=== PATIENT | female | born 1980 | race Caucasian/White ===

== ENCOUNTER 2017-02-10 21:24 | Emergency (ER) | payer OTHER ==
[2017-02-10 21:36] VITALS: BP 121/86; PULSE 87; TEMP 98; BMI 36.8
[2017-02-10] MEDS ORDERED: SODIUM CHLORIDE 1,000 ML IV STA (22:53)
[2017-02-10] MEDS ORDERED: OXYCODONE/APAP 5/325MG COMBO TABLET PO ONE (22:55)
[2017-02-10] MEDS ORDERED: OXYCODONE/APAP 5/325MG COMBO TABLET ONE (23:05)
[2017-02-10 23:33] LABS: BASOPHIL 1.1 % (0-2.0); EOSINOPHIL 2.2 % (0-4.5); MCH 26.4 pg (25.7-33.7); MCHC 32.1 g/dl (32.0-36.0); MEAN CELL VOLUME 82.4 fl (80-96); MEAN PLT VOLUME 7.4 fl (7.5-11.1); NEUTROPHILS 54.6 % (42.8-82.8); PLATELET COUNT 302 K/MM3 (134-434); RDW 14.8 % (11.6-15.6); WHITE BLOOD COUNT 6.2 K/mm3 (4.0-10.0)
[2017-02-10 23:58] LABS: ANION GAP 11 (8-16); BILIRUBIN,TOTAL 0.4 mg/dL (0.2-1.0); CALCIUM 8.7 mg/dL (8.5-10.1); CO2 24 mmol/L (21-32); COCKROFT - GAULT 146.7865; CREATININE 0.8 mg/dL (0.55-1.02); GLUCOSE,RANDOM 89 mg/dL (74-106); SGOT/AST 16 U/L (15-37); SGPT/ALT 17 U/L (12-78); TOT PROT 7.9 g/dl (6.4-8.2)
[2017-02-11 00:01] LABS: ALK PHOS 59 U/L (45-117); TROPONIN I < 0.02 ng/ml (0.00-0.05)
[2017-02-11 02:31] LABS: URINE APPEARANCE SLCLOUDY; URINE BILIRUBIN NEGATIVE (NEGATIVE); URINE COLOR DKYELLOW; URINE GLUCOSE (UA) NEGATIVE (NEGATIVE); URINE KETONE 1+ (NEGATIVE); URINE NITRITE NEGATIVE (NEGATIVE); URINE UROBILINOGEN NEGATIVE E.U./dl (0.2-1.0)
[2017-02-11 02:33] LABS: URINE BLOOD 1+ (NEGATIVE); URINE LEUK ESTERASE 1+ (NEGATIVE); URINE PROTEIN 1+ (NEGATIVE)
--- NOTE | 2017-02-11 02:56 | PDOC ---
History of Present Illness - General Chief Complaint: Chest Pain Stated Complaint: CHEST PAIN Time Seen by Provider: 02/10/17 21:56 History Source: Patient Exam Limitations: No Limitations - History of Present Illness Initial Comments: 02/11/17 02:49 36yo Female patient w/ PmHx: recurrent boils presents to ED c/o chest pain that started at 6pm, nausea, weakness, dizziness, and chills. Patient reports she does not believe it "true" chest pains, but states she had an abscess underneath her left breast that burst on its own. She states having a similar issue 2-3 years ago but near her groin which tracked to her rectum, and she had to undergo surgery to correct problem. Patient is concerns she may have blood infection. She denies fever, diff breathing, CP, Abd pain, vomiting or diarrhea. She denies any other complaints at this time. Presenting Symptoms: Chest Pain, Nausea Timing/Duration: reports: intermittent Severity/Quality: reports: mild Location: denies: substernal, central, epigastric, shoulder, back, abdomen, other Chest Pain Radiation: denies: no radiation, jaw, arms, neck, shoulders, back, sternal notch, epigastric, other Activities at Onset: denies: none, exertion, emotional upset, rest, sleep, no specific activity, eating, working, sexual intercourse, other Prior Chest Pain/Cardiac Workup: denies: No prior chest pain, No prior cardiac workup, Non-cardiac, Angina, Cardiac Cath, Cardiolye Scan, Echocardiography, Heart Attack, Pulmonary Embolism, Stress Test, Thallium Scan, Other Past History - Travel Traveled outside of the country in the last 30 days: No Close contact w/someone who was outside of country & ill: No - Past Medical History Allergies/Adverse Reactions: Allergies Allergy/AdvReac Type Severity Reaction Status Date / Time amoxicillin [Amoxicillin] Allergy Severe Vomiting Verified 05/05/16 22:48 shellfish derived Allergy Severe Difficulty Verified 05/05/16 22:48 Breathing Penicillins Allergy Unknown Verified 05/05/16 22:48 Home Medications: Ambulatory Orders Albuterol Sulfate 0.5% [Ventolin 0.5% Nebulizing Soln. -] 1 neb IH QID PRN 08/16 Clindamycin [Cleocin -] 300 mg PO BID #20 capsule 02/11/17 Oxycodone HCl/Acetaminophen [Percocet 10-325 mg Tablet] 1 each PO Q4H PRN #24 tablet MDD 6 tabs 02/11/17 Asthma: Yes (NO ADMISSIONS) Suicide Attempt (Hx): No - Surgical History Cholecystectomy: Yes - Psycho/Social/Smoking Cessation Hx Anxiety: No Suicidal Ideation: No Smoking Status: Yes Smoking History: Never smoked Have you smoked in the past 12 months: No Number of Cigarettes Smoked Daily: 0 If you are a former smoker, when did you quit?: 2011 Information on smoking cessation initiated: No Hx Alcohol Use: No Drug/Substance Use Hx: No Substance Use Type: None Review of Systems - Review of Systems Able to Perform ROS?: Yes Is the patient limited Estonian proficient: No Constitutional: Yes: Chills. No: Fever Respiratory: No: Cough, Shortness of Breath, Stridor, Wheezing Cardiac (ROS): Yes: Chest Pain. No: Palpitations, Syncope, Chest Tightness ABD/GI: Yes: Nausea. No: Constipated, Diarrhea, Poor Appetite, Poor Fluid Intake, Vomiting, Abdominal cramping : No: Burning, Dysuria, Discharge, Flank Pain, Hematuria Musculoskeletal: No: Back Pain Integumentary: Yes: Other (Abscess beneath left breast.). No: Bruising, Dryness , Pruritus, Rash Neurological: No: Headache, Seizure, Tingling, Ataxia, Dizziness All Other Systems: Reviewed and Negative *Physical Exam - Vital Signs Last Vital Signs Temp Pulse Resp BP Pulse Ox 98 F 87 18 121/86 98 02/10/17 21:34 02/10/17 21:34 02/10/17 21:34 02/10/17 21:34 02/10/17 21:34 - Physical Exam General Appearance: Yes: Nourished, Appropriately Dressed. No: Apparent Distress, Mild Distress, Moderate Distress, Severe Distress Neck: positive: Trachea midline, Normal Thyroid, Supple. negative: Rigid, Stridor, Lymphadenopathy (R), Lymphadenopathy (L) Respiratory/Chest: positive: Lungs Clear, Normal Breath Sounds. negative: Chest Tender, Respiratory Distress, Accessory Muscle Use, Labored Respiration, Rapid RR, Rhonchi, Stridor, Wheezing Cardiovascular: positive: Regular Rhythm, Regular Rate. negative: Edema, JVD, Murmur Gastrointestinal/Abdominal: positive: Normal Bowel Sounds, Soft. negative: Distended, Guarding, Rebound, Tenderness Musculoskeletal: positive: Normal Inspection. negative: CVA Tenderness, Vertebral Tenderness Extremity: positive: Normal Capillary Refill, Normal Inspection, Normal Range of Motion. negative: Pedal Edema, Swelling, Calf Tenderness, Erythema, Inflammation Integumentary: positive: Normal Color, Dry, Warm. negative: Erythema, Hives, Rash, Swelling Neurologic: positive: front desk host II-XII NML intact, Fully Oriented, Alert, Normal Mood/ Affect, Normal Response, Motor Strength 01/16 ED Treatment Course - LABORATORY CBC & Chemistry Diagram: 02/10/17 23:10 02/10/17 23:10 - ADDITIONAL ORDERS Additional order review: Laboratory Results 02/11/17 02/10/17 02/10/17 02:24 23:10 23:10 Sodium 139 Potassium 3.8 Chloride 104 Carbon Dioxide 24 Anion Gap 11 BUN 9 Creatinine 0.8 Creat Clearance w eGFR > 60 Random Glucose 89 Lactic Acid 1.0 Calcium 8.7 Total Bilirubin 0.4 D AST 16 D ALT 17 Alkaline Phosphatase 59 Creatine Kinase 85 Troponin I < 0.02 Total Protein 7.9 Albumin 4.0 D Urine Color Dkyellow Urine Appearance Slcloudy Urine pH 5.0 D Urine Protein 1+ H Urine Glucose (UA) Negative Urine Ketones 1+ H Urine Blood 1+ H Urine Nitrite Negative Urine Bilirubin Negative Urine Urobilinogen Negative Ur Leukocyte Esterase 1+ H 02/10/17 23:10 RBC 5.13 MCV 82.4 MCHC 32.1 RDW 14.8 MPV 7.4 L Neutrophils % 54.6 Lymphocytes % 32.1 D Monocytes % 10.0 Eosinophils % 2.2 Basophils % 1.1 - Medications Given in the ED: ED Medications Discontinued Medications Generic Name Dose Route Start Last Admin Trade Name Freq PRN Reason Stop Dose Admin Sodium Chloride 1,000 mls @ 1,000 mls/hr 02/10/17 22:53 02/10/17 23:00 Normal Saline - IV 02/10/17 23:52 1,000 mls/hr ASDIR STA Administration Oxycodone/Acetaminophen 1 combo 02/10/17 22:55 02/10/17 23:00 Percocet 5/325 - PO 02/10/17 22:56 1 combo ONCE ONE Administration *DC/Admit/Observation/Transfer Diagnosis at time of Disposition: Abscess of skin of breast - Discharge Dispostion Disposition: HOME Condition at time of disposition: Improved Admit: No - Prescriptions Prescriptions: Clindamycin [Cleocin -] 300 mg PO BID #20 capsule Oxycodone HCl/Acetaminophen [Percocet 10-325 mg Tablet] 1 each PO Q4H PRN #24 tablet MDD 6 tabs PRN Reason: Severe Pain - Patient Instructions Printed Discharge Instructions: DI for Atypical Chest Pain Additional Instructions: FOLLOW UP WITH YOUR PRIMARY CARE PROVIDER THIS WEEK FOR FURTHER EVALUATION. TAKE MEDICATIONS PRESCRIBED. DO NOT DRIVE, DRINK ALCOHOL, OR OPERATE HEAVY MACHINERY WHILE TAKING PERCOCET. YOU MAY TAKE 1 PERCOCET AND 1 MOTRIN 400-600MG FOR EXTENDED PAIN RELIEF. CLINDAMYCIN FOR ANTIBIOTIC COVERAGE. TAKE WITH FOOD. RETURN IF SYMPTOMS WORSEN OR ANY CONCERNS FOR FURTHER EVALUATION. Print Language: PARAGUAYAN
[2017-02-11 03:01] LABS: URINE MUCUS MANY; URINE RBC 7 /hpf (0-3); URINE WBC 15 /hpf (3-5)
--- NOTE | 2017-02-11 03:06 | PDOC ---
*Physical Exam - Vital Signs Last Vital Signs Temp Pulse Resp BP Pulse Ox 98 F 87 18 121/86 98 02/10/17 21:34 02/10/17 21:34 02/10/17 21:34 02/10/17 21:34 02/10/17 21:34 ED Treatment Course - LABORATORY CBC & Chemistry Diagram: 02/10/17 23:10 02/10/17 23:10 - ADDITIONAL ORDERS Additional order review: Laboratory Results 02/11/17 02/10/17 02/10/17 02:24 23:10 23:10 Sodium 139 Potassium 3.8 Chloride 104 Carbon Dioxide 24 Anion Gap 11 BUN 9 Creatinine 0.8 Creat Clearance w eGFR > 60 Random Glucose 89 Lactic Acid 1.0 Calcium 8.7 Total Bilirubin 0.4 D AST 16 D ALT 17 Alkaline Phosphatase 59 Creatine Kinase 85 Troponin I < 0.02 Total Protein 7.9 Albumin 4.0 D Urine Color Dkyellow Urine Appearance Slcloudy Urine pH 5.0 D Urine Protein 1+ H Urine Glucose (UA) Negative Urine Ketones 1+ H Urine Blood 1+ H Urine Nitrite Negative Urine Bilirubin Negative Urine Urobilinogen Negative Ur Leukocyte Esterase 1+ H Urine RBC 7 Urine WBC 15 Ur Epithelial Cells Few Urine Mucus Many 02/10/17 23:10 RBC 5.13 MCV 82.4 MCHC 32.1 RDW 14.8 MPV 7.4 L Neutrophils % 54.6 Lymphocytes % 32.1 D Monocytes % 10.0 Eosinophils % 2.2 Basophils % 1.1 - Medications Given in the ED: ED Medications Discontinued Medications Generic Name Dose Route Start Last Admin Trade Name Freq PRN Reason Stop Dose Admin Sodium Chloride 1,000 mls @ 1,000 mls/hr 02/10/17 22:53 02/10/17 23:00 Normal Saline - IV 02/10/17 23:52 1,000 mls/hr ASDIR STA Administration Oxycodone/Acetaminophen 1 combo 02/10/17 22:55 02/10/17 23:00 Percocet 5/325 - PO 02/10/17 22:56 1 combo ONCE ONE Administration Medical Decision Making - Medical Decision Making 02/11/17 03:06 agree with care from JIMENA Boo *DC/Admit/Observation/Transfer Diagnosis at time of Disposition: Abscess of skin of breast - Prescriptions Prescriptions: Clindamycin [Cleocin -] 300 mg PO BID #20 capsule Oxycodone HCl/Acetaminophen [Percocet 10-325 mg Tablet] 1 each PO Q4H PRN #24 tablet MDD 6 tabs PRN Reason: Severe Pain - Referrals Referrals: Juan Pabon [Primary Care Provider] - - Patient Instructions - Post Discharge Activity
--- NOTE | 2017-02-12 16:35 | EKG ---
Test Reason : Blood Pressure : / mmHG Vent. Rate : 076 BPM Atrial Rate : 076 BPM P-R Int : 136 ms QRS Dur : 088 ms QT Int : 400 ms P-R-T Axes : 047 048 050 degrees QTc Int : 450 ms SINUS RHYTHM WITH OCCASIONAL PREMATURE VENTRICULAR COMPLEXES OTHERWISE NORMAL ECG NO PREVIOUS ECGS AVAILABLE Confirmed by BG MUJICA, JOAN ([id number]) on 02/12/2017 4:35:02 PM Referred By: Confirmed By:JOAN PEDERSON MD
== END 2017-02-11 03:29 | disposition home or self-care (01) ==
LOC: JER 21:24
PROC: 3E0337Z Introduction of Electrolytic and Water Balance Substance into Peripheral Vein, Percutaneous Approach (ICD-10-PCS; principal; 2017-02-10)
DX: N61.1 Abscess of the breast and nipple (principal); R42 Dizziness and giddiness
CPT/HCPCS: 36415; 80053; 81003; 81015; 82550; 83605; 84484; 85025; 93005; 93010; 99283-25

== ENCOUNTER 2017-03-16 08:44 | Emergency (ER) | payer OTHER ==
[2017-03-16 08:48] VITALS: BP 148/71; PULSE 100; TEMP 98.4; BMI 36.0
[2017-03-16] MEDS ORDERED: KETOROLAC TROMETHAMINE 60 MG/2 ML VIAL IM ONE (09:19)
--- NOTE | 2017-03-16 09:24 | PDOC ---
History of Present Illness - General Chief Complaint: Pain Stated Complaint: RT LEG PAIN Time Seen by Provider: 03/16/17 08:49 History Source: Patient Exam Limitations: No Limitations - History of Present Illness Initial Comments: 03/16/17 09:44 Patient came for evaluation of severe right hip and groin pain. States had onset on Thursday to us progressively gotten worse where it's difficult for her to walk. Denies any knowledge of injury, change in footwear, any heavy lifting or strenuous activity that would've caused a pole or injury. Has had no history of back pain orc accidents, has never had this pain before. 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 Denies fever, denies any numbness or tingling to foot, denies any back injury. Has taken no medication for relief of pain. 03/16/17 09:57 Occurred: reports: yesterday Severity: reports: mild, moderate Pain Location: reports: lower extremity (right hip/ groin), pelvis Method of Injury: Yes: unknown Loss of Consciousness: no loss of consciousness Associated Symptoms (Fall): denies symptoms Past History - Travel Traveled outside of the country in the last 30 days: No Close contact w/someone who was outside of country & ill: No - Past Medical History Allergies/Adverse Reactions: Allergies Allergy/AdvReac Type Severity Reaction Status Date / Time amoxicillin [Amoxicillin] Allergy Severe Vomiting Verified 03/16/17 08:45 shellfish derived Allergy Severe Difficulty Verified 03/16/17 08:45 Breathing Penicillins Allergy Unknown Verified 03/16/17 08:45 Home Medications: Ambulatory Orders Albuterol Sulfate 0.5% [Ventolin 0.5% Nebulizing Soln. -] 1 neb IH QID PRN 08/16 Cyclobenzaprine HCl [Flexeril 10 mg] 10 mg PO BID PRN #14 tablet 03/16/17 Naproxen [Naprosyn -] 500 mg PO BID #30 tablet 03/16/17 Asthma: Yes (NO ADMISSIONS) Suicide Attempt (Hx): No - Surgical History Cholecystectomy: Yes - Psycho/Social/Smoking Cessation Hx Anxiety: No Suicidal Ideation: No Smoking Status: Yes Smoking History: Never smoked Have you smoked in the past 12 months: No Number of Cigarettes Smoked Daily: 0 If you are a former smoker, when did you quit?: 2011 Information on smoking cessation initiated: No Hx Alcohol Use: No Drug/Substance Use Hx: No Substance Use Type: None Trauma Specific PMHX - Complaint Specific PMHX Back Injury: No Neck Injury: No Review of Systems - Review of Systems Able to Perform ROS?: Yes Is the patient limited Armenian proficient: Yes Constitutional: Yes: Symptoms Reported, See HPI. No: Fever, Malaise HEENTM: Yes: Symptoms Reported Respiratory: Yes: Symptoms reported, See HPI Musculoskeletal: Yes: Symptoms Reported, See HPI, Joint Pain, Muscle Pain, Muscle Weakness (anterior thigh/groin) Neurological: Yes: See HPI. No: Symptoms reported All Other Systems: Reviewed and Negative *Physical Exam - Vital Signs Last Vital Signs Temp Pulse Resp BP Pulse Ox 98.4 F 100 H 18 148/71 100 03/16/17 08:45 03/16/17 08:45 03/16/17 08:45 03/16/17 08:45 03/16/17 08:45 - Physical Exam General Appearance: Yes: Nourished, Appropriately Dressed, Apparent Distress, Mild Distress HEENT: positive: EVA, Normal ENT Inspection, TMs Normal, Pharynx Normal Neck: negative: Tender Respiratory/Chest: positive: Lungs Clear Gastrointestinal/Abdominal: positive: Soft Musculoskeletal: positive: Normal Inspection, Decreased Range of Motion ( forward flexion and abduction to right hip is tender, reproduces primarily to the anterior aspect and right groin. Has no true buttock or back pain, no crepitus or step-off to spine. Walking is difficult secondary to this pain reproduced in the groin and upper quadricep muscles. No swelling, no ecchymoses or erythema noted. The knee and foot, neurovascular intact distal to groin.) Extremity: positive: Normal Capillary Refill, Normal Inspection, Pelvis Stable. negative: Normal Range of Motion, Swelling Integumentary: positive: Normal Color, Dry, Warm, Pale. negative: Rash Neurologic: positive: reconnaissance man II-XII NML intact, Fully Oriented, Alert, Normal Mood/ Affect, Normal Response, Motor Strength 5/5 Progress Note - Progress Note Progress Note: X-ray negative for fractures dislocations, bony injury Groin strain, will treat with NSAIDs cyclobenzaprine, and have follow up with Ortho in one to 2 days if not improving. *DC/Admit/Observation/Transfer Diagnosis at time of Disposition: Inguinal strain Qualifiers: Encounter type: initial encounter Laterality: right Qualified Code(s): S76.211A - Strain of adductor muscle, fascia and tendon of right thigh, initial encounter - Discharge Dispostion Disposition: HOME Condition at time of disposition: Stable Admit: No - Prescriptions Prescriptions: Cyclobenzaprine HCl [Flexeril 10 mg] 10 mg PO BID PRN #14 tablet PRN Reason: spasm Naproxen [Naprosyn -] 500 mg PO BID #30 tablet - Referrals Referrals: Juan Pabon [Primary Care Provider] - - Patient Instructions Printed Discharge Instructions: DI for Groin Strain Additional Instructions: Rest, no heavy lifting or exercise until pain is resolved Hot soaks to neck and low back / area of pain as often as possible/hot showers or Jacuzzis No massage or therapy until spasm is gone Continue Naprosyn 500mg tablets every 8 hours for the next 3 days then as needed for pain and swelling Cyclobenzaprine 1-10mg every 8 hours as needed for spasm If not significant improvement within 24 hours with medication and rest regime, followup with private physician for change in medications and /or therapy. - Post Discharge Activity Work/School Note: Back to Work
[2017-03-16 09:38] LABS: URINE APPEARANCE CLEAR; URINE BILIRUBIN NEGATIVE (NEGATIVE); URINE COLOR LTYELLOW; URINE GLUCOSE (UA) NEGATIVE (NEGATIVE); URINE KETONE NEGATIVE (NEGATIVE); URINE LEUK ESTERASE NEGATIVE (NEGATIVE); URINE NITRITE NEGATIVE (NEGATIVE); URINE PROTEIN NEGATIVE (NEGATIVE); URINE UROBILINOGEN NEGATIVE E.U./dl (0.2-1.0)
[2017-03-16 09:41] LABS: URINE BLOOD 3+ (NEGATIVE)
[2017-03-16] MEDS ORDERED: KETOROLAC TROMETHAMINE 60 MG/2 ML VIAL ONE (09:42)
[2017-03-16 09:43] LABS: URINE MUCUS RARE; URINE RBC 158 /hpf (0-3); URINE WBC 4 /hpf (3-5)
== END 2017-03-16 11:04 | disposition home or self-care (01) ==
LOC: JERFT 08:44
PROC: 3E0233Z Introduction of Anti-inflammatory into Muscle, Percutaneous Approach (ICD-10-PCS; principal; 2017-03-16)
DX: S76.211A Strain of adductor muscle, fascia and tendon of right thigh, initial encounter (principal); X58.XXXA Exposure to other specified factors, initial encounter; Y93.89 Activity, other specified; Y92.89 Other specified places as the place of occurrence of the external cause
CPT/HCPCS: 73523-TC; 81003; 81015; 84703; 96372; 99281-25

== ENCOUNTER 2017-04-13 17:29 | Emergency (ER) | payer OTHER ==
[2017-04-13 18:01] VITALS: BP 134/68; PULSE 70; TEMP 98.4; BMI 36.8
[2017-04-13] MEDS ORDERED: ALBUTEROL SO4 2.5/IPRATROPIUM 0.5 INH SOL 3 ML VIAL.NEB. NEB ONE ×3 (18:42→19:15)
[2017-04-13] MEDS ORDERED: predniSONE 20 MG TABLET (UD) PO ONE (18:42)
--- NOTE | 2017-04-13 18:43 | PDOC ---
History of Present Illness - General Chief Complaint: Asthma Stated Complaint: ASTHMA Time Seen by Provider: 04/13/17 17:59 History Source: Patient Exam Limitations: No Limitations - History of Present Illness Initial Comments: 04/13/17 19:31 Patient came for evaluation of asthma exacerbation with cold. States for the past few days had a URI without fever, without nasal drainage, without phlegm production but cough has progressed and feels her chest is becoming more tight. Has used her albuterol at home prior states feels needed a further evaluation. Timing/Duration: reports: changing over time, getting worse Severity: reports: mild, moderate Modifying Factors: improves with: albuterol inhaler, coughing Associated Symptoms: reports: chest pain/soreness, cough, fever/chills, headache Past History - Travel Traveled outside of the country in the last 30 days: No Close contact w/someone who was outside of country & ill: No - Past Medical History Allergies/Adverse Reactions: Allergies Allergy/AdvReac Type Severity Reaction Status Date / Time amoxicillin [Amoxicillin] Allergy Severe Vomiting Verified 04/13/17 17:54 shellfish derived Allergy Severe Difficulty Verified 04/13/17 17:54 Breathing Penicillins Allergy Unknown Verified 04/13/17 17:54 Home Medications: Ambulatory Orders Albuterol Sulfate 0.5% [Ventolin 0.5% Nebulizing Soln. -] 1 neb IH QID PRN 08/16 Prednisone [Deltasone -] 20 mg PO BID #8 tablet 04/13/17 Asthma: Yes (NO ADMISSIONS) Suicide Attempt (Hx): No - Surgical History Cholecystectomy: Yes - Immunization History Immunization Up to Date: Yes - Psycho/Social/Smoking Cessation Hx Anxiety: No Suicidal Ideation: No Smoking Status: Yes Smoking History: Never smoked Have you smoked in the past 12 months: No Number of Cigarettes Smoked Daily: 0 If you are a former smoker, when did you quit?: 2011 Information on smoking cessation initiated: No Hx Alcohol Use: No Drug/Substance Use Hx: No Substance Use Type: None Respiratory Specific PMHX - Complaint Specific PMHX Bronchitis: Yes Pneumonia: No Review of Systems - Review of Systems Able to Perform ROS?: Yes Is the patient limited Bengali proficient: Yes Constitutional: Yes: Symptoms Reported, See HPI, Malaise. No: Fever, Loss of Appetite HEENTM: Yes: Symptoms Reported, See HPI, Nose Congestion Respiratory: Yes: See HPI, Cough, Shortness of Breath, Wheezing Cardiac (ROS): No: Symptoms Reported Musculoskeletal: No: Symptoms Reported Neurological: Yes: Symptoms reported, See HPI All Other Systems: Reviewed and Negative *Physical Exam - Vital Signs Last Vital Signs Temp Pulse Resp BP Pulse Ox 98.4 F 70 17 134/68 100 04/13/17 17:54 04/13/17 17:54 04/13/17 17:54 04/13/17 17:54 04/13/17 17:54 - Physical Exam General Appearance: Yes: Nourished, Appropriately Dressed, Apparent Distress, Mild Distress HEENT: positive: EVA, Normal ENT Inspection, TMs Normal, Pharynx Normal (no redness, swelling or exudate noted posterior pharynx) Neck: positive: Tender, Supple. negative: Lymphadenopathy (R), Lymphadenopathy (L) Respiratory/Chest: positive: Lungs Clear, Wheezing (tight inspiratory and expiratory breath sounds, with expiratory wheezing noted throughout.). negative : Normal Breath Sounds, Respiratory Distress Cardiovascular: positive: Regular Rate Gastrointestinal/Abdominal: positive: Soft. negative: Tender Extremity: positive: Normal Capillary Refill, Normal Inspection, Normal Range of Motion Integumentary: positive: Normal Color, Dry, Warm, Pale Neurologic: positive: nursing unit coordinator II-XII NML intact, Fully Oriented, Alert, Normal Mood/ Affect, Normal Response, Motor Strength 5/5 Progress Note - Progress Note Progress Note: Asthma exacerbation with URI. We will provide DuoNeb's, 60 mg of prednisone by mouth and reassess Medical Decision Making - Medical Decision Making 04/13/17 19:33 04/13/17 20:02 Much improved after 2 DuoNeb nebs and 60 mg of prednisone. Breath sounds are clear, no wheezing detected, patient feels well and ready for discharge. *DC/Admit/Observation/Transfer Diagnosis at time of Disposition: Asthma with exacerbation Qualifiers: Asthma severity: mild intermittent Qualified Code(s): J45.21 - Mild intermittent asthma with (acute) exacerbation - Discharge Dispostion Disposition: HOME Condition at time of disposition: Stable Admit: No - Prescriptions Prescriptions: Prednisone [Deltasone -] 20 mg PO BID #8 tablet - Referrals Referrals: Juan Pabon [Primary Care Provider] - - Patient Instructions Printed Discharge Instructions: Asthma -- Adult Additional Instructions: Rest, drink lots of fluids: Teas, water, soups, Pedialyte Saltwater gargles Steamy showers/seem to face break up mucus Avoid contact with others until fevers and cough resolved Lots of handwashing and good hygiene Continue [id number] medications for symptomatic relief Tylenol or Motrin for fever and pain Continue albuterol nebulizers every 4-6 hours for the next 2 days then as needed for continued cough Prednisone as directed until completed Followup with private physician in one to 2 days Return to emergency department / pediatric hospital for worsened symptoms, fevers, dehydration - Post Discharge Activity Work/School Note: Back to Work
[2017-04-13] MEDS ORDERED: predniSONE 20 MG TABLET (UD) ONE (18:51)
[2017-04-13] MEDS ORDERED: IBUPROFEN 600 MG TABLET (FP) PO ONE (19:15)
== END 2017-04-13 20:01 | disposition home or self-care (01) ==
LOC: JERFT 17:29
PROC: 3E0F7GC Introduction of Other Therapeutic Substance into Respiratory Tract, Via Natural or Artificial Opening (ICD-10-PCS; principal; 2017-04-13)
PROC: 3E0F7GC Introduction of Other Therapeutic Substance into Respiratory Tract, Via Natural or Artificial Opening (ICD-10-PCS; 2017-04-13)
DX: J45.21 Mild intermittent asthma with (acute) exacerbation (principal)
CPT/HCPCS: 94640; 99281-25

== ENCOUNTER 2017-05-10 14:45 | Emergency (ER) | payer OTHER ==
[2017-05-10 14:51] VITALS: TEMP 99; BMI 36.6
--- NOTE | 2017-05-10 15:15 | PDOC ---
Attending Attestation - Resident Resident Name: Elmer Avina - ED Attending Attestation I have performed the following: I have examined & evaluated the patient, The case was reviewed & discussed with the resident, I agree w/resident's findings & plan, Exceptions are as noted - HPI HPI: 05/10/17 15:30 36 yo woman with hx of asthma presents with URI symptoms - Physicial Exam PE: 05/10/17 15:30 VSS/ Nontoxic/ NAD - Medical Decision Making 05/10/17 15:[address] Avina Assessment and Plan
[2017-05-10] MEDS ORDERED: ALBUTEROL SO4 2.5/IPRATROPIUM 0.5 INH SOL 3 ML VIAL.NEB. NEB ONE ×2 (15:24→15:28)
--- NOTE | 2017-05-10 15:35 | PDOC ---
History of Present Illness - General Chief Complaint: Cold Symptoms Stated Complaint: SOB. ACHES (ASTHMA) Time Seen by Provider: 05/10/17 14:54 History Source: Patient Exam Limitations: No Limitations - History of Present Illness Initial Comments: 05/10/17 15:27 Patient is a 36F with history of asthma, cholecystectomy, fistula s/p surgical repair here today complaining of fever, cough, runny nose and shortness of breath. Patient states that she's had symptoms for the past two weeks, but has worsened in the past four days. Fever was measured to 101 at home. Patient only took an albuterol inhaler and breathing treatment, which helped marginally. She denies being on any sort of preventative medication for asthma. She endorses nausea, denies vomiting. She complains of diffuse chest pain that gets worse with inspiration and coughing. Past History - Past Medical History Allergies/Adverse Reactions: Allergies Allergy/AdvReac Type Severity Reaction Status Date / Time amoxicillin [Amoxicillin] Allergy Severe Vomiting Verified 05/10/17 14:47 shellfish derived Allergy Severe Difficulty Verified 05/10/17 14:47 Breathing Penicillins Allergy Unknown Verified 05/10/17 14:47 Home Medications: Ambulatory Orders Albuterol Sulfate 0.5% [Ventolin 0.5% Nebulizing Soln. -] 1 neb IH QID PRN 08/16 Asthma: Yes (NO ADMISSIONS) Suicide Attempt (Hx): No - Surgical History Abdominal Surgery: Yes Cholecystectomy: Yes - Immunization History Immunization Up to Date: Yes - Psycho/Social/Smoking Cessation Hx Anxiety: No Suicidal Ideation: No Smoking Status: Yes Smoking History: Former smoker Have you smoked in the past 12 months: No Number of Cigarettes Smoked Daily: 0 If you are a former smoker, when did you quit?: 2011 Information on smoking cessation initiated: No Hx Alcohol Use: No Drug/Substance Use Hx: No Substance Use Type: None Review of Systems - Review of Systems Comments:: 05/10/17 15:35 GENERAL/CONSTITUTIONAL: Positive for fevers and chills. HEAD, EYES, EARS, NOSE AND THROAT: No change in vision. No ear pain or discharge. Positive for sore throat. CARDIOVASCULAR: Positive for shortness of breath and chest pain. RESPIRATORY: Positive for cough and wheezing. GASTROINTESTINAL: Positive for nausea. Negative for vomiting, diarrhea or constipation. GENITOURINARY: No dysuria, frequency, or change in urination. MUSCULOSKELETAL: Diffuse muscle and joint pain. SKIN: Positive for ezcematous rash NEUROLOGIC: Positive for headache. Negative for vertigo, loss of consciousness, or change in strength/sensation. HEMATOLOGIC/LYMPHATIC: No anemia, easy bleeding, or history of blood clots. ALLERGIC/IMMUNOLOGIC: No hives or skin allergy. *Physical Exam - Vital Signs Last Vital Signs Temp Pulse Resp BP Pulse Ox 99 F 100 H 18 111/72 98 05/10/17 14:46 05/10/17 14:46 05/10/17 14:46 05/10/17 14:46 05/10/17 14:46 - Physical Exam Comments: 05/10/17 15:38 GENERAL: Awake, alert, and fully oriented, in no acute distress HEAD: No signs of trauma, normocephalic, atraumatic EYES: PERRLA, EOMI, sclera anicteric, conjunctiva clear ENT: Auricles normal inspection, hearing grossly normal, nares patent, oropharynx clear without exudates. Moist mucosa. Bilateral excoriations in ears. NECK: Normal ROM, supple, no lymphadenopathy, JVD, or masses LUNGS: No distress, speaks full sentences, minimal wheezing in lung bases HEART: Regular rate and rhythm, normal S1 and S2, no murmurs, rubs or gallops, peripheral pulses normal and equal bilaterally. EXTREMITIES: Normal inspection, Normal range of motion, no edema. No clubbing or cyanosis. NEUROLOGICAL: Cranial nerves II through XII grossly intact. Normal speech, normal gait, no focal sensorimotor deficits SKIN: Warm, Dry, normal turgor, no rashes or lesions noted. ED Treatment Course - RADIOLOGY Radiology Studies Ordered: Category Date Time Status CHEST PA & LAT [RAD] Stat Radiology 05/10/17 15:24 Ordered Medical Decision Making - Medical Decision Making 05/10/17 15:40 Patient is a 36F with history of asthma here today complaining of URI symptoms. Vital signs stable and normal. Some wheezing on exam. Will do chest x-ray to evaluate. Given duonebs. Likely viral URI. Patient has multiple visits to the ED for same complaint. Educated to contact PCP to manage asthma symptoms proactively. 05/10/17 16:55 Patient respiratory symptoms have subjectively improved after duonebs. Vital signs remain stable and normal. 05/10/17 17:11 CXR shows no acute cardiopulmonary process. Discharged with PCP follow up. Given return precautions. Patient verbalizes understanding. *DC/Admit/Observation/Transfer Diagnosis at time of Disposition: Upper respiratory tract infection Qualifiers: URI type: unspecified viral URI Qualified Code(s): J06.9 - Acute upper respiratory infection, unspecified; B97.89 - Other viral agents as the cause of diseases classified elsewhere - Discharge Dispostion Disposition: HOME Condition at time of disposition: Good Admit: No - Patient Instructions Printed Discharge Instructions: DI for Viral Upper Respiratory Infection -- Adult - Attestations Physician Attestion: 05/10/17 17:12 I, Dr. Elmer Avina, attest that this document has been prepared under my direction and personally reviewed by me in its entirety. I further attest, that it accurately reflects all work, treatment, procedures and medical decision -making performed by me.
[2017-05-10 17:28] VITALS: BP 127/65; PULSE 88
== END 2017-05-10 17:26 | disposition home or self-care (01) ==
LOC: JER 14:45 → SUPCPDRO 14:45 → JER 17:26
PROC: 3E0F7GC Introduction of Other Therapeutic Substance into Respiratory Tract, Via Natural or Artificial Opening (ICD-10-PCS; principal; 2017-05-10)
DX: J06.9 Acute upper respiratory infection, unspecified (principal); B97.89 Other viral agents as the cause of diseases classified elsewhere
CPT/HCPCS: 71020-TC; 84703; 94640; 99282-25

== ENCOUNTER 2017-06-24 12:30 | Emergency (ER) | payer OTHER ==
[2017-06-24 12:34] VITALS: BP 115/71; PULSE 93; TEMP 98.3; BMI 36.8
[2017-06-24] MEDS ORDERED: ALBUTEROL SO4 2.5/IPRATROPIUM 0.5 INH SOL 3 ML VIAL.NEB. NEB ONE ×3 (12:49→13:12)
--- NOTE | 2017-06-24 12:49 | PDOC ---
History of Present Illness - General Chief Complaint: Cold Symptoms Stated Complaint: SOB Time Seen by Provider: 06/24/17 12:44 History Source: Patient Exam Limitations: No Limitations - History of Present Illness Initial Comments: 06/24/17 13:36 Chief complaint: Asthma Patient is 36-year-old female history asthma since childhood, has not been hospitalized since she was a child. She states this time he year her asthma gets worse but she is also concerned because she is coughing up some phlegm and concerned she might have an infection. She states this doesn't happen often, no fever and she's been using her Ventolin since Thursday and she still wheezing. No history of intubations. Patient appears comfortable and is able speak in full sentences. Does not smoke GENERAL/CONSTITUTIONAL: No fever, weakness. dizziness HEAD, EYES, EARS, NOSE AND THROAT: No change in vision. No ear pain or discharge. No sore throat. CARDIOVASCULAR: No chest pain RESPIRATORY: +shortness of breath, cough GASTROINTESTINAL: No pain, nausea, vomiting, diarrhea or constipation GENITOURINARY: No dysuria MUSCULOSKELETAL: No neck or back pain SKIN: No rash NEUROLOGIC: No headache, vertigo, loss of consciousness, or loss of sensation. GENERAL: The patient is awake, alert, and fully oriented, in no acute distress. HEAD: Normal with no signs of trauma. EYES: Pupils equal, round and reactive to light, sclera anicteric, conjunctiva clear. ENT: pharynx: no erythema, no exudate, uvula midline NECK: supple CHEST: Scattered Bilateral expiratory wheeze, nontender, rr ABD: soft, nontender EXTREMITIES: Normal range of motion, no edema. NEUROLOGICAL: Normal speech, normal gait. SKIN: Warm, Dry 06/24/17 15:05 Past History - Past Medical History Allergies/Adverse Reactions: Allergies Allergy/AdvReac Type Severity Reaction Status Date / Time amoxicillin [Amoxicillin] Allergy Severe Vomiting Verified 06/24/17 12:34 shellfish derived Allergy Severe Difficulty Verified 06/24/17 12:34 Breathing Penicillins Allergy Unknown Verified 06/24/17 12:34 Home Medications: Ambulatory Orders Albuterol Sulfate 0.5% [Ventolin 0.5% Nebulizing Soln. -] 1 neb IH QID PRN 08/16 Albuterol 0.083% Nebulizer Miriam [Ventolin 0.083% Nebulizer Soln -] 1 neb NEB Q4H #30 vial 06/24/17 Albuterol Sulfate Inhaler - [Ventolin HFA Inhaler -] 2 inh PO Q4H #1 inh Azithromycin [Zithromax -] 250 mg PO UTDICT #6 tab 06/24/17 Prednisone [Deltasone] 40 mg PO DAILY #8 tablet 06/24/17 Asthma: Yes (NO ADMISSIONS) - Surgical History Abdominal Surgery: Yes Cholecystectomy: Yes (gall bladder) - Immunization History Immunization Up to Date: Yes - Suicide/Smoking/Psychosocial Hx Smoking Status: Yes Smoking History: Former smoker Have you smoked in the past 12 months: No Number of Cigarettes Smoked Daily: 0 If you are a former smoker, when did you quit?: 2011 Information on smoking cessation initiated: No Hx Alcohol Use: No Drug/Substance Use Hx: No Substance Use Type: None *Physical Exam - Vital Signs Last Vital Signs Temp Pulse Resp BP Pulse Ox 98.3 F 93 H 20 115/71 97 06/24/17 12:31 06/24/17 12:31 06/24/17 12:31 06/24/17 12:31 06/24/17 12:31 Medical Decision Making - Medical Decision Making 06/24/17 13:37 36-year-old female with history of asthma, having problems with her asthma for the last 2 days using her Ventolin every 2-3 hours she got better and now she is getting worse so also concerned about getting an infection. Patient not recently on antibiotics. no imaging indicated, will give another DuoNeb, and start on prednisone and will give her Z-Deangelo, ALLERGIC to penicillins. 06/24/17 15:06 Patient was improved on discharge *DC/Admit/Observation/Transfer Diagnosis at time of Disposition: Asthma exacerbation Qualifiers: Asthma severity: unspecified severity Asthma persistence: unspecified Qualified Code(s): J45.901 - Unspecified asthma with (acute) exacerbation - Discharge Dispostion Disposition: HOME Condition at time of disposition: Stable Admit: No - Prescriptions Prescriptions: Prednisone [Deltasone] 40 mg PO DAILY #8 tablet Albuterol 0.083% Nebulizer Miriam [Ventolin 0.083% Nebulizer Soln -] 1 neb NEB Q4H #30 vial Albuterol Sulfate Inhaler - [Ventolin HFA Inhaler -] 2 inh PO Q4H #1 inh Azithromycin [Zithromax -] 250 mg PO UTDICT #6 tab - Referrals Referrals: Juan Pabon [Primary Care Provider] - - Patient Instructions Printed Discharge Instructions: DI for Asthma -- Adult Additional Instructions: Drink 2-3 L of water daily Use the Ventolin every 4 hours Take the Z-Deangelo as instructed Return to the nearest ER if short of breath, unable to swallow or feeling sicker Followup with your doctor in one to 2 days
[2017-06-24] MEDS ORDERED: predniSONE 20 MG TABLET (UD) PO ONE (13:09)
[2017-06-24] MEDS ORDERED: predniSONE 20 MG TABLET (UD) ONE (13:11)
== END 2017-06-24 13:46 | disposition home or self-care (01) ==
LOC: JERFT 12:30
PROC: 3E0F7GC Introduction of Other Therapeutic Substance into Respiratory Tract, Via Natural or Artificial Opening (ICD-10-PCS; principal; 2017-06-24)
DX: J45.901 Unspecified asthma with (acute) exacerbation (principal)
CPT/HCPCS: 99281-25

== ENCOUNTER 2018-06-17 18:49 | Emergency (ER) | payer OTHER ==
[2018-06-17 19:12] VITALS: BP 118/65; PULSE 79; TEMP 98.3; BMI 36.8
--- NOTE | 2018-06-17 19:12 | PDOC ---
Rapid Medical Evaluation Chief Complaint: Respiratory Time Seen by Provider: 06/17/18 19:09 Medical Evaluation: Allergies Allergy/AdvReac Type Severity Reaction Status Date / Time amoxicillin [Amoxicillin] Allergy Severe Vomiting Verified 06/24/17 12:34 shellfish derived Allergy Severe Difficulty Verified 06/24/17 12:34 Breathing Penicillins Allergy Unknown Verified 06/24/17 12:34 06/17/18 19:09 CC: Cough/Wheezing HPI: Pt is a 37 YO female who states that she has had "cold like symptoms" x 5- 6 days. She states that occasionally she will get "dizzy" and she can "hear herself wheezing." Pt has a hx of asthma. Pt denies fever, denies recent travel. Denies smoking. I have performed a brief in- person evaluation of this patient. Pertinent Physical Findings: Skin: Clear Lungs: Pt has mild inspiratory and expiratory wheezing, no use of accessory muscles. Heart: RRR Neuro: Alert Psych: Appropriate affect The patient will proceed to: ED for further evaluation. Discharge Disposition - Diagnosis Acute exacerbation of asthma with allergic rhinitis - Referrals - Patient Instructions - Post Discharge Activity
[2018-06-17] MEDS ORDERED: ALBUTEROL SO4 2.5/IPRATROPIUM 0.5 INH SOL 3 ML VIAL.NEB. NEB ONE ×3 (19:45→21:09)
[2018-06-17] MEDS ORDERED: predniSONE 20 MG TABLET (UD) ONE (19:45)
--- NOTE | 2018-06-17 19:53 | PDOC ---
History of Present Illness - General History Source: Patient Exam Limitations: No Limitations - History of Present Illness Initial Comments: 06/17/18 19:48 Patient came for persistent asthmatic bronchitis. States became tight last weekend with the cold symptoms, has been using her albuterol at home but is progressively worsened. Denies fever but has thick green-yellow phlegm production and feels symptoms are worsening. now has been dizzy for a couple days and mildly anorexic secondary to her cough and wheezing. Timing/Duration: reports: getting worse Severity: reports: mild, moderate Modifying Factors: improves with: albuterol inhaler, albuterol nebulizer, coughing Associated Symptoms: reports: cough, fever/chills, headache, sore throat <Lauren Holguin - Last Filed: 06/17/18 19:48> <Jazmine Irwin - Last Filed: 06/17/18 22:01> - General Chief Complaint: Respiratory Stated Complaint: ASTHMA Time Seen by Provider: 06/17/18 19:09 Past History - Travel Traveled outside of the country in the last 30 days: No Close contact w/someone who was outside of country & ill: No - Past Medical History Asthma: Yes (NO ADMISSIONS) CVA: No COPD: No CHF: No - Surgical History Abdominal Surgery: Yes Cholecystectomy: Yes (gall bladder) - Immunization History Immunization Up to Date: Yes - Suicide/Smoking/Psychosocial Hx Smoking Status: Yes Smoking History: Never smoked Have you smoked in the past 12 months: No Number of Cigarettes Smoked Daily: 0 If you are a former smoker, when did you quit?: 2011 Information on smoking cessation initiated: No Hx Alcohol Use: No Drug/Substance Use Hx: No Substance Use Type: None <Lauren Holguin - Last Filed: 06/17/18 19:48> <Jazmine Irwin - Last Filed: 06/17/18 22:01> - Past Medical History Allergies/Adverse Reactions: Allergies Allergy/AdvReac Type Severity Reaction Status Date / Time amoxicillin [Amoxicillin] Allergy Severe Vomiting Verified 06/17/18 19:09 shellfish derived Allergy Severe Difficulty Verified 06/17/18 19:09 Breathing Penicillins Allergy Unknown Verified 06/17/18 19:09 Home Medications: Ambulatory Orders Albuterol 0.083% Nebulizer Miriam [Ventolin 0.083% Nebulizer Soln -] 1 neb NEB Q4H PRN #30 vial 06/17/18 Azithromycin [Zithromax -] 250 mg PO UTDICT #6 tab 06/17/18 predniSONE [Deltasone -] 20 mg PO BID #8 tablet 06/17/18 Respiratory Specific PMHX - Complaint Specific PMHX Bronchitis: Yes Pneumonia: No <Lauren Holguin - Last Filed: 06/17/18 19:48> Review of Systems - Review of Systems Able to Perform ROS?: Yes Is the patient limited [place]ian proficient: Yes Constitutional: Yes: Symptoms Reported, See HPI, Loss of Appetite, Malaise. No : Fever HEENTM: Yes: Symptoms Reported, See HPI, Nose Congestion, Throat Pain. No: Mouth Swelling Respiratory: Yes: Symptoms reported, See HPI, Cough, Stridor, Wheezing Musculoskeletal: Yes: Symptoms Reported Neurological: Yes: Symptoms reported, See HPI, Headache All Other Systems: Reviewed and Negative <Ezio,Lauren - Last Filed: 06/17/18 19:48> *Physical Exam - Vital Signs Last Vital Signs Temp Pulse Resp BP Pulse Ox 98.3 F 79 16 118/65 98 06/17/18 19:10 06/17/18 19:10 06/17/18 19:10 06/17/18 19:10 06/17/18 19:10 - Physical Exam General Appearance: Yes: Nourished, Appropriately Dressed, Apparent Distress, Moderate Distress HEENT: positive: EVA, Normal ENT Inspection (no redness, swelling or exudate noted however has posterior sinus drainage), TMs Normal (congested but landmarks easily visualized), Rhinorrhea Neck: positive: Supple Respiratory/Chest: positive: Decreased Breath Sounds, Rhonchi, Wheezing. negative: Normal Breath Sounds Gastrointestinal/Abdominal: positive: Soft. negative: Tender Musculoskeletal: negative: Normal Inspection Extremity: positive: Normal Capillary Refill, Normal Inspection, Normal Range of Motion Integumentary: positive: Normal Color, Dry, Warm, Pale Neurologic: positive: heater installer II-XII NML intact, Fully Oriented, Alert, Normal Mood/ Affect, Normal Response <[place]Maryellen ferraraLauren - Last Filed: 06/17/18 19:48> - Vital Signs Last Vital Signs Temp Pulse Resp BP Pulse Ox 98.3 F 79 16 118/65 98 06/17/18 19:10 06/17/18 19:10 06/17/18 19:10 06/17/18 19:10 06/17/18 19:10 <Jazmine Irwin - Last Filed: 06/17/18 22:01> ED Treatment Course - Medications Given in the ED: ED Medications Discontinued Medications Generic Name Dose Route Start Last Admin Trade Name Henrique PRN Reason Stop Dose Admin Albuterol/Ipratropium 1 amp 06/17/18 20:15 06/17/18 21:02 Duoneb - NEB 06/17/18 21:01 1 amp Q15M PRATIK Administration Albuterol/Ipratropium 1 amp 06/17/18 21:09 06/17/18 21:11 Duoneb - NEB 06/17/18 21:10 1 amp ONCE ONE Administration <Jazmine Irwin - Last Filed: 06/17/18 22:01> Progress Note - Progress Note Progress Note: Asthma exacerbation with cold symptoms. We will treat with frank amaro, given 60 mg of prednisone and we'll reevaluate. <Lauren Holguin - Last Filed: 06/17/18 19:48> Medical Decision Making - Medical Decision Making 06/17/18 21:59 Patient re-evaluated after 5 duonebs in the ED. Pt now speaking in full sentences without wheezing. Lungs with good aeration to the bases with faint wheezing at the bases. Pt. stable to go home. Will dc at this time I discussed the physical exam findings, ancillary test results and final diagnoses with the patient. I answered all of the patient's questions. The patient was satisfied with the care received and felt comfortable with the discharge plan and treatment plan. The Patient agrees to follow up with the primary care physician/specialist within 24-72 hours. Return precautions were given. <Jazmine Irwin - Last Filed: 06/17/18 22:01> *DC/Admit/Observation/Transfer - Discharge Dispostion Decision to Admit order: No <Lauren Holguin - Last Filed: 06/17/18 19:48> <Jazmine Irwin - Last Filed: 06/17/18 22:01> Diagnosis at time of Disposition: Acute exacerbation of asthma with allergic rhinitis - Discharge Dispostion Disposition: HOME Condition at time of disposition: Stable - Prescriptions Prescriptions: Albuterol 0.083% Nebulizer Miriam [Ventolin 0.083% Nebulizer Soln -] 1 neb NEB Q4H PRN #30 vial PRN Reason: Cough Azithromycin [Zithromax -] 250 mg PO UTDICT #6 tab predniSONE [Deltasone -] 20 mg PO BID #8 tablet - Referrals Referrals: Juan Pabon [Primary Care Provider] - - Patient Instructions Printed Discharge Instructions: DI for Acute Bronchitis Additional Instructions: Rest, drink lots of fluids: Teas, water, soups, Pedialyte Saltwater gargles Steamy showers/seem to face break up mucus Avoid contact with others until fevers and cough resolved Lots of handwashing and good hygiene Continue [id number] medications for symptomatic relief Tylenol or Motrin for fever and pain Continue albuterol nebulizers every 4-6 hours for the next 2 days then as needed for continued cough Prednisone as directed until completed Azithromycin and take as directed for 5 day course of antibiotic treatment Followup with private physician in one to 2 days Return to emergency department / pediatric hospital for worsened symptoms, fevers, dehydration - Post Discharge Activity Forms/Work/School Notes: Back to Work
[2018-06-17] MEDS: ALBUTEROL SO4 2.5/IPRATROPIUM 0.5 INH SOL 3 ML VIAL.NEB. NEB SCH ×4 (20:18→21:02)
== END 2018-06-17 22:04 | disposition home or self-care (01) ==
LOC: JERFT 18:49
PROC: 3E0F7GC Introduction of Other Therapeutic Substance into Respiratory Tract, Via Natural or Artificial Opening (ICD-10-PCS; principal; 2018-06-17)
PROC: 3E0F7GC Introduction of Other Therapeutic Substance into Respiratory Tract, Via Natural or Artificial Opening (ICD-10-PCS; 2018-06-17)
PROC: 3E0F7GC Introduction of Other Therapeutic Substance into Respiratory Tract, Via Natural or Artificial Opening (ICD-10-PCS; 2018-06-17)
PROC: 3E0F7GC Introduction of Other Therapeutic Substance into Respiratory Tract, Via Natural or Artificial Opening (ICD-10-PCS; 2018-06-17)
PROC: 3E0F7GC Introduction of Other Therapeutic Substance into Respiratory Tract, Via Natural or Artificial Opening (ICD-10-PCS; 2018-06-17)
DX: J45.901 Unspecified asthma with (acute) exacerbation (principal)
CPT/HCPCS: 99281-25; J7620

== ENCOUNTER 2018-07-02 13:25 | Emergency (ER) | payer OTHER ==
[2018-07-02 13:32] VITALS: TEMP 99.4; BMI 37.0
--- NOTE | 2018-07-02 14:40 | PDOC ---
History of Present Illness - General Chief Complaint: Lightheaded Stated Complaint: NEAR SYNCOPE Time Seen by Provider: 07/02/18 14:40 - History of Present Illness Initial Comments: 37 year old female with PMH of asthma presenting with dizziness for the pat two week that acutely worsened today along with some nausea/ vomiting. Patient states that she had a small asthma exacerbation two weeks prior after having some nasal congestion for a few days during which he started to experience some dizziness. Describes this dizziness as a sensation that the room is shifting particularly when trying to focus on patterns in the room. Denies fall or syncope but this morning she felt as if she claire fall and had 6-7 episodes of nausea/ vomiting. Has had a headache occasionally during these weeks but not while the dizziness occurred. The headaches resolve with Tylenol and Motrin. Denies fevers, chills, diarrhea, chest pain, visual symptoms, SOB, or other symptoms. 07/02/18 18:14 Past History - Past Medical History Allergies/Adverse Reactions: Allergies Allergy/AdvReac Type Severity Reaction Status Date / Time amoxicillin [Amoxicillin] Allergy Severe Vomiting Verified 07/02/18 13:27 shellfish derived Allergy Severe Difficulty Verified 07/02/18 13:27 Breathing Penicillins Allergy Unknown Verified 07/02/18 13:27 Home Medications: Ambulatory Orders Albuterol 0.083% Nebulizer Miriam [Ventolin 0.083% Nebulizer Soln -] 1 neb NEB Q4H PRN #30 vial 07/02/18 Meclizine HCl [Antivert -] 25 mg PO DAILY #30 tablet 07/02/18 Ondansetron [Zofran *Odt*] 8 mg SL BID 10 Days #20 od.tablet 07/02/18 Asthma: Yes (NO ADMISSIONS) CVA: No COPD: No CHF: No - Surgical History Abdominal Surgery: Yes Cholecystectomy: Yes (gall bladder) - Immunization History Immunization Up to Date: Yes - Suicide/Smoking/Psychosocial Hx Smoking Status: Yes Smoking History: Never smoked Have you smoked in the past 12 months: No Number of Cigarettes Smoked Daily: 0 If you are a former smoker, when did you quit?: 2011 Information on smoking cessation initiated: No Hx Alcohol Use: No Drug/Substance Use Hx: No Substance Use Type: None Review of Systems - Review of Systems Constitutional: No: Chills, Diaphoresis, Fever HEENTM: No: Blurred Vision, Tearing, Double Vision Respiratory: No: Cough, Shortness of Breath Cardiac (ROS): No: Chest Pain, Edema, Irregular Heart Rate ABD/GI: No: Constipated, Diarrhea, Nausea, Vomiting : No: Burning, Dysuria, Discharge Musculoskeletal: No: Back Pain, Joint Pain, Muscle Weakness Integumentary: No: Erythema, Flushing, Lesions, Lumps Neurological: Yes: Headache, Unsteady Gait. No: Numbness, Paresthesia Psychiatric: No: Anxiety, Depression Endocrine: No: Flushing, Intolerance to Cold, Intolerance to Heat Hematologic/Lymphatic: No: Anemia, Blood Clots, Easy Bleeding *Physical Exam - Vital Signs Last Vital Signs Temp Pulse Resp BP Pulse Ox 99.4 F 65 18 105/67 97 07/02/18 13:27 07/02/18 13:27 07/02/18 13:27 07/02/18 13:27 07/02/18 13:27 - Physical Exam General Appearance: Yes: Nourished, Appropriately Dressed. No: Apparent Distress HEENT: positive: EOMI, EVA, Normal ENT Inspection, Normal Voice Neck: positive: Trachea midline, Normal Thyroid, Supple. negative: Tender, Rigid Respiratory/Chest: positive: Lungs Clear, Normal Breath Sounds. negative: Chest Tender, Respiratory Distress, Accessory Muscle Use Cardiovascular: positive: Regular Rhythm, Regular Rate Gastrointestinal/Abdominal: positive: Normal Bowel Sounds, Flat, Soft. negative : Tender Lymphatic: negative: Adenopathy, Tenderness Musculoskeletal: positive: Normal Inspection. negative: Decreased Range of Motion Extremity: positive: Normal Capillary Refill, Normal Inspection, Normal Range of Motion. negative: Tender Integumentary: positive: Normal Color, Dry, Warm Neurologic: positive: solar engineer II-XII NML intact, Fully Oriented, Alert, Normal Mood/ Affect, Normal Response, Motor Strength 5/5, Other (Gait was not ataxic but patient was walking slowly because of percieved room unsteadiness) Medical Decision Making - Medical Decision Making 37 year old female with two weeks of what appear to be vertiginous symptoms. Slightly improved with meclizine, zofran, Reglan, IV NS, and Valium. Will C patient with meclizine, zofran, and neuro follow up as neuro exam completely intact/ non-acute and patient would like to go home. 07/02/18 18:26 *DC/Admit/Observation/Transfer Diagnosis at time of Disposition: Vertigo - Discharge Dispostion Disposition: HOME Condition at time of disposition: Improved Decision to Admit order: No - Prescriptions Prescriptions: Albuterol 0.083% Nebulizer Miriam [Ventolin 0.083% Nebulizer Soln -] 1 neb NEB Q4H PRN #30 vial PRN Reason: Cough Meclizine HCl [Antivert -] 25 mg PO DAILY #30 tablet Ondansetron [Zofran *Odt*] 8 mg SL BID 10 Days #20 od.tablet - Referrals Referrals: Juan Pabon [Primary Care Provider] - Matheus Wilson MD [Staff Physician] - - Patient Instructions Printed Discharge Instructions: DI for Vertigo Additional Instructions: Please use the meclizine daily. We presume that you have vertigo which could have been because of your recent upper respiratory infection. Please make an appointment with neurology to discuss your symptoms and get better control of your symptoms. Please use the zofran twice a day as needed for your nausea. Please return to the ED if you have new or worsening symptoms. - Post Discharge Activity
[2018-07-02] MEDS ORDERED: ONDANSETRON 4 MG/2 ML VIAL IVPUSH ONE (15:17)
[2018-07-02] MEDS ORDERED: MECLIZINE HCL 25 MG TABLET (FP) PO ONE (15:17)
[2018-07-02] MEDS ORDERED: SODIUM CHLORIDE 0.9% 500 ML INFUS.BAG IV ONE (15:17)
[2018-07-02] MEDS ORDERED: MECLIZINE HCL 25 MG TABLET (FP) ONE ×2 (15:39→16:50)
[2018-07-02] MEDS ORDERED: ONDANSETRON 4 MG/2 ML VIAL ONE ×2 (15:40→16:50)
--- NOTE | 2018-07-02 16:20 | PDOC ---
Attending Attestation - HPI HPI: 07/02/18 17:03 The patient is a 37 year old female with a significant PMH of cholecystectomy , asthma and fistula s/p surgical repair who presents to the emergency department with lightheadedness for 2 weeks . the patient reports that she has been experiencing some dizziness- like things are morning . she states that she feels unstable like she is going to fall. The patient states that her episodes have been intermittent . she reports having multiple episodes today with associated nausea and vomiting. The patient denies any recent fall or injury. She states that she does have occasional headaches that have been worsened over to past two weeks generally located in the back of her head. She reports having her last headache this morning. The patient denies any other symptoms. She denies any fever, chills, diarrhea, constipation, or urinary symptoms. She denies any chest pain, shortness of breath. The patient denies any other complaints. It is noted that the patient was recently admitted and discharged from the hospital 2 weeks ago for an asthma exacerbation by which she was given nebs and medication. Documentation prepared by Yasir Tenorio, acting as pediatrician/medical doctor for Johnie Marcelino MD. <Yasir Tenorio - Last Filed: 07/02/18 17:03> - Resident Resident Name: Darrel Strange - ED Attending Attestation I have performed the following: I have examined & evaluated the patient, The case was reviewed & discussed with the resident, I agree w/resident's findings & plan, Exceptions are as noted - HPI HPI: 07/02/18 16:18 37y F presents with vertigo x 2 weeks, described as diszziness, when she tries to focus on something, things start moving around. these sypmtoms are intermittent, was recently admitted for asthma and treated as bronchitis with nebs, abx. pt had multiple episodes today with an associated n/v no assoicated cp, palpitations, diarrhea, melena pt denies associated headache with her dizziness, posterior - Physicial Exam PE: 07/02/18 18:20 GENERAL: The patient is awake, alert, and fully oriented, Nontoxic - in no acute distress. HEAD: Normocephalic, atraumatic. EYES: extraocular movements intact, sclera anicteric, conjunctiva clear. ENT: Normal voice, Moist mucous membranes. NECK: Normal range of motion, supple LUNGS: Breath sounds equal, clear to auscultation bilaterally. No wheezes, no rhonchi, no rales. HEART: Regular rate and rhythm, normal S1 and S2 without murmur, rub or gallop. ABDOMEN: Soft, nontender, normoactive bowel sounds. No guarding, no rebound. . No CVA tenderness EXTREMITIES: Normal range of motion, no edema. No clubbing or cyanosis. No cords, erythema, or tenderness. PSYCH: Normal mood, normal affect. SKIN: Warm, Dry, normal turgor, NEURO: Mental status: The patient is oriented x3. Cranial nerves: Cranial nerves II through XII are intact Motor: The upper extremities are 5 over 5 in all muscle groups. The lower extremities are 5 over 5 in all muscle groups. Negative pronator drift Sensation: Sensation is intact to light touch throughout. romberg negative Cerebellar: Asrxdr-alenge-hnhy is normal in both upper extremities. rapid alternating movements are normal. Reflexes: 2+ and symmetric in the upper and lower extremities. Gait: Normal. Heel and toe walking are normal. Tandem gait is normal. - Medical Decision Making 07/02/18 18:25 Suspect the patient's symptoms are secondary to vertigo, she seemed to have a recent URI may be attributed to caden. The patient's neurologic exam is normal including no signs of abnormal cerebellar dysfunction. Treat the patient with antibiotics, meclizine, fluids Will reassess <Johnie Marcelino - Last Filed: 07/02/18 18:25>
[2018-07-02] MEDS ORDERED: METOCLOPRAMIDE HCL 10 MG TABLET (FP) PO ONE ×2 (17:00→17:05)
[2018-07-02] MEDS ORDERED: diazePAM 2 MG TABLET PO ONE (17:00)
[2018-07-02] MEDS ORDERED: diazePAM 5 MG TABLET ONE (17:04)
[2018-07-02 18:35] VITALS: BP 136/85; PULSE 88
== END 2018-07-02 18:36 | disposition home or self-care (01) ==
LOC: JER 13:25
PROC: 3E033GC Introduction of Other Therapeutic Substance into Peripheral Vein, Percutaneous Approach (ICD-10-PCS; principal; 2018-07-02)
DX: H81.90 Unspecified disorder of vestibular function, unspecified ear (principal); J45.909 Unspecified asthma, uncomplicated; R05 Cough
CPT/HCPCS: 84703; 96374; 99283-25

== ENCOUNTER 2021-01-18 06:02 | Emergency (ER) | payer OTHER ==
[2021-01-18 06:31] VITALS: BP 115/78; PULSE 63; TEMP 97.6; BMI 32.3
[2021-01-18] MEDS ORDERED: PANTOPRAZOLE SODIUM 40 MG VIAL IVPUSH ONE (07:33)
[2021-01-18] MEDS ORDERED: KETOROLAC TROMETHAMINE 30 MG/1 ML VIAL IVPUSH ONE (07:33)
[2021-01-18] MEDS ORDERED: ONDANSETRON 4 MG/2 ML VIAL IVPUSH ONE (07:33)
[2021-01-18] MEDS ORDERED: SODIUM CHLORIDE 0.9% 500 ML INFUS.BAG IV ONE (07:33)
[2021-01-18] MEDS ORDERED: MAG HYDROX/AL HYDROX/SIMETH 30 ML UNIT-DOSE CUP PO ONE (07:34)
[2021-01-18] MEDS ORDERED: PANTOPRAZOLE SODIUM 40 MG VIAL ONE (08:03)
[2021-01-18] MEDS ORDERED: KETOROLAC TROMETHAMINE 30 MG/1 ML VIAL ONE (08:03)
[2021-01-18] MEDS ORDERED: MAG HYDROX/AL HYDROX/SIMETH 30 ML UNIT-DOSE CUP ONE (08:03)
[2021-01-18] MEDS ORDERED: ONDANSETRON 4 MG/2 ML VIAL ONE (08:03)
[2021-01-18 09:09] LABS: BASO % 0.4 % (0-2.0); EOS % 0.1 % (0-4.5); HEMATOCRIT 39.1 % (32.4-45.2); HEMOGLOBIN 13.1 GM/dL (10.7-15.3); LYMPH % 16.4 % (8-40); MCH 28.5 pg (25.7-33.7); MCHC 33.6 g/dl (32.0-36.0); MEAN CELL VOLUME 84.7 fl (80-96); MEAN PLT VOLUME 7.2 fl (7.5-11.1); MONO % 5.9 % (3.8-10.2); NEUT % 77.2 % (42.8-82.8); PLATELET COUNT 327 K/MM3 (134-434); RBC 4.61 M/mm3 (3.60-5.2); RDW 14.5 % (11.6-15.6); WHITE BLOOD COUNT 6.5 K/mm3 (4.0-10.0)
[2021-01-18 09:15] LABS: HCG,QUALITATIVE URINE Negative
[2021-01-18 09:16] LABS: EPI CELLS 15 /uL (0-25.1); HYALINE CASTS 2 /uL (0-3.1); PH,URINE 5.5 (5.0-8.0); URINE APPEARANCE CLEAR; URINE BACTERIA 63 /uL (0-1359); URINE BILIRUBIN NEGATIVE (NEGATIVE); URINE COLOR YELLOW; URINE GLUCOSE (UA) NEGATIVE (NEGATIVE); URINE KETONE 2+ (NEGATIVE); URINE LEUK ESTERASE NEGATIVE (NEGATIVE); URINE NITRITE NEGATIVE (NEGATIVE); URINE PROTEIN 1+ (NEGATIVE); URINE RBC 12 /uL (0-23.9); URINE UROBILINOGEN 0.2 mg/dL (0.2-1.0); URINE WBC 10 /uL (0-25.8)
[2021-01-18 09:30] LABS: CALCIUM 8.5 mg/dL (8.5-10.1)
[2021-01-18 09:31] LABS: ALBUMIN 3.8 g/dl (3.4-5.0); BLOOD UREA NITROGEN 10.3 mg/dL (7-18)
[2021-01-18 09:34] LABS: CREATININE 0.8 mg/dL (0.55-1.3)
[2021-01-18 09:35] LABS: BILIRUBIN,TOTAL 0.3 mg/dL (0.2-1); TOT PROT 7.6 g/dl (6.4-8.2)
[2021-01-18] MEDS ORDERED: METOCLOPRAMIDE HCL INJECTION 10 MG/2 ML VIAL IVPUSH ONE (10:02)
[2021-01-18] MEDS ORDERED: diphenhydrAMINE HCL 25 MG CAPSULE (FP) PO ONE ×2 (10:03→10:16)
[2021-01-18] MEDS ORDERED: METOCLOPRAMIDE HCL INJECTION 10 MG/2 ML VIAL ONE (10:16)
== END 2021-01-18 13:21 | disposition home or self-care (01) ==
LOC: JER 06:02
PROC: 3E0333Z Introduction of Anti-inflammatory into Peripheral Vein, Percutaneous Approach (ICD-10-PCS; principal; 2021-01-18)
PROC: 3E033GC Introduction of Other Therapeutic Substance into Peripheral Vein, Percutaneous Approach (ICD-10-PCS; 2021-01-18)
PROC: 3E033GC Introduction of Other Therapeutic Substance into Peripheral Vein, Percutaneous Approach (ICD-10-PCS; 2021-01-18)
PROC: 3E033GC Introduction of Other Therapeutic Substance into Peripheral Vein, Percutaneous Approach (ICD-10-PCS; 2021-01-18)
DX: R10.13 Epigastric pain (principal)
CPT/HCPCS: 36415; 80053; 81003; 83690; 84703; 85025; 87086; 99284-25; C9803; U0003; U0005

== ENCOUNTER 2022-01-26 21:17 | Emergency (ER) | payer OTHER ==
[2022-01-26 21:30] VITALS: TEMP 98.1; BMI 33.7
[2022-01-26] MEDS ORDERED: DEXAMETHASONE SOD PHOSPHATE 10 MG/1 ML VIAL IVPUSH ONE (22:08)
[2022-01-26] MEDS ORDERED: DEXAMETHASONE SOD PHOSPHATE 10 MG/1 ML VIAL ONE (22:32)
[2022-01-26] MEDS: ALBUTEROL SO4 2.5/IPRATROPIUM 0.5 INH SOL 3 ML VIAL.NEB. NEB SCH ×2 (23:05→23:06)
[2022-01-26 23:08] LABS: BASO % 0.4 % (0-2.0); EOS % 0.2 % (0-4.5); HEMATOCRIT 33.1 % (32.4-45.2); HEMOGLOBIN 10.7 GM/dL (10.7-15.3); LYMPH % 6.2 % (8-40); MCH 25.9 pg (25.7-33.7); MCHC 32.4 g/dl (32.0-36.0); MEAN CELL VOLUME 79.9 fl (80-96); MEAN PLT VOLUME 6.9 fl (7.5-11.1); MONO % 4.5 % (3.8-10.2); NEUT % 88.7 % (42.8-82.8); PLATELET COUNT 305 10^3/uL (134-434); RBC 4.15 M/mm3 (3.60-5.2); RDW 15.9 % (11.6-15.6); WHITE BLOOD COUNT 9.9 K/mm3 (4.0-10.0)
[2022-01-26 23:19] LABS: BLOOD UREA NITROGEN 8.1 mg/dL (7-18); CALCIUM 7.9 mg/dL (8.5-10.1)
[2022-01-26 23:21] LABS: ALBUMIN 3.1 g/dl (3.4-5.0)
[2022-01-26 23:23] LABS: CREATININE 0.8 mg/dL (0.55-1.3)
[2022-01-26 23:25] LABS: BILIRUBIN,TOTAL 0.2 mg/dL (0.2-1); TOT PROT 6.3 g/dl (6.4-8.2)
[2022-01-27] VITALS: BP 104/61; PULSE 86
== END 2022-01-27 00:11 | disposition home or self-care (01) ==
LOC: JER 21:17
PROC: 3E0F7GC Introduction of Other Therapeutic Substance into Respiratory Tract, Via Natural or Artificial Opening (ICD-10-PCS; principal; 2022-01-26)
PROC: 3E033NZ Introduction of Analgesics, Hypnotics, Sedatives into Peripheral Vein, Percutaneous Approach (ICD-10-PCS; 2022-01-26)
DX: R55 Syncope and collapse (principal)
CPT/HCPCS: 36415; 80053; 82962; 84703; 85025; 93005; 93010; 99284-25; J1100

== ENCOUNTER 2022-07-06 10:40 | Emergency (ER) | payer OTHER ==
[2022-07-06 10:46] VITALS: BP 113/68; PULSE 89; RESP 18; TEMP 98.4; BMI 36.6
[2022-07-06] MEDS ORDERED: KETOROLAC TROMETHAMINE 30 MG/1 ML VIAL IM ONE (11:34)
[2022-07-06] MEDS ORDERED: KETOROLAC TROMETHAMINE 30 MG/1 ML VIAL ONE (11:38)
== END 2022-07-06 11:58 | disposition home or self-care (01) ==
LOC: JERFT 10:40
PROC: 3E023GC Introduction of Other Therapeutic Substance into Muscle, Percutaneous Approach (ICD-10-PCS; principal; 2022-07-06)
DX: M79.671 Pain in right foot (principal)
CPT/HCPCS: 73630-TC-RT-FY; 99284-25

== ENCOUNTER 2022-08-16 10:08 | Emergency (ER) | payer OTHER ==
[2022-08-16 10:19] VITALS: BP 137/88; RESP 19; TEMP 98.6; BMI 36.0
[2022-08-16] MEDS ORDERED: ALBUTEROL SO4 2.5/IPRATROPIUM 0.5 INH SOL 3 ML VIAL.NEB. NEB ONE (10:35)
[2022-08-16] MEDS ORDERED: predniSONE 10 MG TABLET (UD) PO ONE (11:50)
[2022-08-16] MEDS ORDERED: predniSONE 20 MG TABLET (UD) ONE (11:51)
[2022-08-16 13:37] VITALS: PULSE 95
== END 2022-08-16 13:38 | disposition home or self-care (01) ==
LOC: JERFT 10:08 → JER 10:08
PROC: 3E0F7GC Introduction of Other Therapeutic Substance into Respiratory Tract, Via Natural or Artificial Opening (ICD-10-PCS; principal; 2022-08-16)
DX: J45.901 Unspecified asthma with (acute) exacerbation (principal)
CPT/HCPCS: 71046-TC-FY; 99283-25

== ENCOUNTER 2022-09-02 10:26 | Emergency (ER) | payer OTHER ==
[2022-09-02 10:37] VITALS: TEMP 97.3; BMI 36.8
[2022-09-02] MEDS ORDERED: MAGNESIUM SULF 50% (8.12 MEQ/2 ML-1 GM VIAL) IVPB ONE (10:39)
[2022-09-02] MEDS ORDERED: ALBUTEROL SO4 0.083% IH SOL 2.5 MG/3 ML VIAL.NEB. NEB ONE ×2 (10:40→11:31)
[2022-09-02] MEDS ORDERED: ALBUTEROL SO4 0.5 % INH SOLN 2.5 MG/0.5 ML VIAL.NEB. NEB ONE (11:22)
[2022-09-02] MEDS ORDERED: MAGNESIUM 1GM/D5W - 1 GM/100 ML IVPB IVPB ONE (11:22)
[2022-09-02 13:18] VITALS: BP 121/67; PULSE 101; RESP 20
[2022-09-02] MEDS ORDERED: ALBUTEROL SO4 2.5/IPRATROPIUM 0.5 INH SOL 3 ML VIAL.NEB. NEB ONE ×4 (13:55→13:57)
== END 2022-09-02 14:35 | disposition home or self-care (01) ==
LOC: JER 10:26
PROC: 3E0F7GC Introduction of Other Therapeutic Substance into Respiratory Tract, Via Natural or Artificial Opening (ICD-10-PCS; principal; 2022-09-02)
PROC: 3E033GC Introduction of Other Therapeutic Substance into Peripheral Vein, Percutaneous Approach (ICD-10-PCS; 2022-09-02)
DX: J45.901 Unspecified asthma with (acute) exacerbation (principal)
CPT/HCPCS: 0241U-QW; 71046-TC-FY; 93005; 93010; 99285-25

== ENCOUNTER 2022-09-14 21:37 | Inpatient (IN) | payer OTHER ==
[2022-09-14] MEDS ORDERED: TERBUTALINE SULFATE 1 MG/1 ML VIAL SQ ONE ×2 (21:46→21:56)
[2022-09-14] MEDS ORDERED: MAGNESIUM SULF 50% (8.12 MEQ/2 ML-1 GM VIAL) IVPB ONE (21:46)
[2022-09-14] MEDS ORDERED: SODIUM CHLORIDE 1,000 ML IV STA (21:46)
[2022-09-14] MEDS ORDERED: DEXAMETHASONE SOD PHOSPHATE 10 MG/1 ML VIAL IVPUSH ONE (21:46)
[2022-09-14] MEDS ORDERED: MAGNESIUM SULFATE IN WATER 2 GM/50 ML IVPB IVPB ONE (21:56)
[2022-09-14] MEDS ORDERED: DEXAMETHASONE SOD PHOSPHATE 10 MG/1 ML VIAL ONE (21:56)
[2022-09-14] MEDS ORDERED: ALBUTEROL SO4 2.5/IPRATROPIUM 0.5 INH SOL 3 ML VIAL.NEB. NEB ONE (21:56)
[2022-09-14] MEDS: ALBUTEROL SO4 2.5/IPRATROPIUM 0.5 INH SOL 3 ML VIAL.NEB. NEB SCH ×3 (22:11→23:00)
[2022-09-14 22:28] LABS: BASO % 1.3 % (0-2.0); EOS % 4.8 % (0-4.5); HEMATOCRIT 40.3 % (32.4-45.2); HEMOGLOBIN 12.6 GM/dL (10.7-15.3); LYMPH % 33.2 % (8-40); MCHC 31.3 g/dl (32.0-36.0); MEAN CELL VOLUME 83.1 fl (80-96); MEAN PLT VOLUME 6.8 fl (7.5-11.1); NEUT % 48.7 % (42.8-82.8); PLATELET COUNT 374 10^3/uL (134-434); RBC 4.84 M/mm3 (3.60-5.2); RDW 15.8 % (11.6-15.6); WHITE BLOOD COUNT 8.1 K/mm3 (4.0-10.0)
[2022-09-14 22:33] LABS: INR 1.01 (0.83-1.09); PROTHROMBIN TIME (PATIENT) 11.6 SEC (9.7-13.0)
[2022-09-14 22:36] LABS: ACTIVATED PTT 28.1 SECONDS (25.2-36.5)
[2022-09-14] MEDS ORDERED: EPINEPHrine/PF 1 MG/1 ML (1:1,000) AMPULE IM ONE (22:50)
[2022-09-14] MEDS ORDERED: EPINEPHrine/PF 1 MG/1 ML (1:1,000) AMPULE ONE (22:55)
[2022-09-14 23:01] LABS: CALCIUM 8.6 mg/dL (8.5-10.1)
[2022-09-14 23:02] LABS: ALBUMIN 3.4 g/dl (3.4-5.0); BLOOD UREA NITROGEN 11.6 mg/dL (7-18)
[2022-09-14 23:05] LABS: CREATININE 0.8 mg/dL (0.55-1.3)
[2022-09-14 23:07] LABS: BILIRUBIN,TOTAL 0.2 mg/dL (0.2-1); TOT PROT 7.2 g/dl (6.4-8.2)
[2022-09-14] MEDS: ALBUTEROL SO4 0.083% IH SOL 2.5 MG/3 ML VIAL.NEB. NEB SCH (23:25)
[2022-09-15] MEDS ORDERED: ALBUTEROL SO4 0.5 % INH SOLN 2.5 MG/0.5 ML VIAL.NEB. NEB ONE (00:10)
[2022-09-15] MEDS ORDERED: ALBUTEROL SO4 0.083% IH SOL 2.5 MG/3 ML VIAL.NEB. NEB ONE ×3 (00:11→19:02)
[2022-09-15] MEDS ORDERED: ALBUTEROL SO4 2.5/IPRATROPIUM 0.5 INH SOL 3 ML VIAL.NEB. NEB PRN (00:36)
[2022-09-15] MEDS: ALBUTEROL SO4 0.083% IH SOL 2.5 MG/3 ML VIAL.NEB. NEB SCH (00:42)
[2022-09-15] MEDS ORDERED: ALBUTEROL SO4 2.5/IPRATROPIUM 0.5 INH SOL 3 ML VIAL.NEB. NEB ONE ×4 (03:11→20:51)
[2022-09-15] MEDS: ALBUTEROL SO4 2.5/IPRATROPIUM 0.5 INH SOL 3 ML VIAL.NEB. NEB PRN ×2 (03:13→09:03)
[2022-09-15] MEDS ORDERED: HEPARIN NA (PORCINE) 5,000 UNITS/ML 1ML VIAL ONE ×2 (08:39→23:30)
[2022-09-15] MEDS ORDERED: methylPREDNISolone NA SUCC 40 MG/1 ML VIAL ONE ×3 (08:39→20:51)
[2022-09-15] MEDS ORDERED: MULTIVITAMINS (DAILY MVI) TABLET (FP) ONE (08:39)
[2022-09-15 08:47] LABS: HEMATOCRIT 36.6 % (32.4-45.2); HEMOGLOBIN 11.5 GM/dL (10.7-15.3); MCH 25.7 pg (25.7-33.7); MCHC 31.4 g/dl (32.0-36.0); MEAN CELL VOLUME 81.9 fl (80-96); PLATELET COUNT 337 10^3/uL (134-434); RBC 4.46 M/mm3 (3.60-5.2); RDW 15.5 % (11.6-15.6); WHITE BLOOD COUNT 12.4 K/mm3 (4.0-10.0)
[2022-09-15 09:01] LABS: BLOOD UREA NITROGEN 9.5 mg/dL (7-18); CALCIUM 8.8 mg/dL (8.5-10.1)
[2022-09-15] MEDS: HEPARIN NA (PORCINE) 5,000 UNITS/ML 1ML VIAL SQ SCH ×2 (09:02→23:35)
[2022-09-15] MEDS: methylPREDNISolone NA SUCC 40 MG/1 ML VIAL IVPUSH SCH ×3 (09:02→20:51)
[2022-09-15] MEDS: MULTIVITAMINS (DAILY MVI) TABLET (FP) PO SCH (09:02)
[2022-09-15 09:05] LABS: CREATININE 0.7 mg/dL (0.55-1.3)
[2022-09-15 09:34] LABS: ANISOCYTOSIS 1+; MACROCYTOSIS 0; OVALOCYTE 1+
[2022-09-15] MEDS: ALBUTEROL SO4 2.5/IPRATROPIUM 0.5 INH SOL 3 ML VIAL.NEB. NEB SCH ×2 (13:01→20:51)
[2022-09-15] MEDS: ALBUTEROL SO4 0.083% IH SOL 2.5 MG/3 ML VIAL.NEB. NEB PRN ×2 (16:41→19:04)
[2022-09-15] MEDS ORDERED: FAMOTIDINE 20 MG/50 ML IVPB 20 MG/50 ML MG IVPB ONE ×2 (21:22→21:31)
[2022-09-15] MEDS ORDERED: MONTELUKAST NA 10 MG TABLET PO SCH (22:00)
[2022-09-15] MEDS ORDERED: MONTELUKAST NA 10 MG TABLET ONE (23:30)
[2022-09-16] MEDS: ALBUTEROL SO4 0.083% IH SOL 2.5 MG/3 ML VIAL.NEB. NEB PRN ×3 (01:17→18:28)
[2022-09-16] MEDS ORDERED: ALBUTEROL SO4 0.083% IH SOL 2.5 MG/3 ML VIAL.NEB. NEB ONE ×3 (01:17→18:23)
[2022-09-16] MEDS: methylPREDNISolone NA SUCC 40 MG/1 ML VIAL IVPUSH SCH ×4 (02:53→21:51)
[2022-09-16] MEDS ORDERED: methylPREDNISolone NA SUCC 40 MG/1 ML VIAL ONE ×3 (02:53→15:49)
[2022-09-16] MEDS ORDERED: ALBUTEROL SO4 2.5/IPRATROPIUM 0.5 INH SOL 3 ML VIAL.NEB. NEB ONE ×2 (07:49→15:43)
[2022-09-16] MEDS: ALBUTEROL SO4 2.5/IPRATROPIUM 0.5 INH SOL 3 ML VIAL.NEB. NEB SCH ×3 (07:55→23:57)
[2022-09-16] MEDS ORDERED: HEPARIN NA (PORCINE) 5,000 UNITS/ML 1ML VIAL ONE (09:31)
[2022-09-16] MEDS ORDERED: MULTIVITAMINS (DAILY MVI) TABLET (FP) ONE (09:31)
[2022-09-16] MEDS: HEPARIN NA (PORCINE) 5,000 UNITS/ML 1ML VIAL SQ SCH ×2 (09:41→21:51)
[2022-09-16] MEDS: MULTIVITAMINS (DAILY MVI) TABLET (FP) PO SCH (09:41)
[2022-09-16 20:24] VITALS: BMI 34.3
[2022-09-16] MEDS: MONTELUKAST NA 10 MG TABLET PO SCH (21:52)
[2022-09-17] MEDS: methylPREDNISolone NA SUCC 40 MG/1 ML VIAL IVPUSH SCH ×3 (03:04→14:24)
[2022-09-17] MEDS: ALBUTEROL SO4 2.5/IPRATROPIUM 0.5 INH SOL 3 ML VIAL.NEB. NEB SCH ×3 (07:19→20:05)
[2022-09-17] MEDS: HEPARIN NA (PORCINE) 5,000 UNITS/ML 1ML VIAL SQ SCH ×2 (11:01→21:51)
[2022-09-17] MEDS: MULTIVITAMINS (DAILY MVI) TABLET (FP) PO SCH (11:01)
[2022-09-17] MEDS: ALBUTEROL SO4 0.083% IH SOL 2.5 MG/3 ML VIAL.NEB. NEB PRN ×2 (12:12→18:01)
[2022-09-17] MEDS ORDERED: MECLIZINE HCL 25 MG TABLET (FP) PO PRN (12:27)
[2022-09-17] MEDS: PANTOPRAZOLE 40 MG TABLET PO SCH (14:24)
[2022-09-17] MEDS: DOCUSATE SODIUM 100 MG CAPSULE (FP) PO SCH ×2 (14:24→21:51)
[2022-09-17] MEDS: POLYETHYLENE GLYCOL (HEALTHYLAX) 3350 17 GM PACKET PO SCH (14:24)
[2022-09-17] MEDS: MONTELUKAST NA 10 MG TABLET PO SCH (21:51)
[2022-09-18] MEDS: methylPREDNISolone NA SUCC 40 MG/1 ML VIAL IVPUSH SCH ×2 (02:01→14:15)
[2022-09-18] MEDS: DOCUSATE SODIUM 100 MG CAPSULE (FP) PO SCH ×3 (06:25→21:45)
[2022-09-18] MEDS: ALBUTEROL SO4 2.5/IPRATROPIUM 0.5 INH SOL 3 ML VIAL.NEB. NEB SCH ×3 (08:17→20:43)
[2022-09-18] MEDS: PANTOPRAZOLE 40 MG TABLET PO SCH (10:00)
[2022-09-18] MEDS: MULTIVITAMINS (DAILY MVI) TABLET (FP) PO SCH (10:00)
[2022-09-18] MEDS: HEPARIN NA (PORCINE) 5,000 UNITS/ML 1ML VIAL SQ SCH ×2 (10:00→21:45)
[2022-09-18] MEDS: POLYETHYLENE GLYCOL (HEALTHYLAX) 3350 17 GM PACKET PO SCH (10:00)
[2022-09-18] MEDS: MONTELUKAST NA 10 MG TABLET PO SCH (21:45)
[2022-09-19] MEDS: methylPREDNISolone NA SUCC 40 MG/1 ML VIAL IVPUSH SCH ×2 (02:36→14:07)
[2022-09-19] MEDS: ALBUTEROL SO4 0.083% IH SOL 2.5 MG/3 ML VIAL.NEB. NEB PRN ×3 (05:00→17:00)
[2022-09-19] MEDS: DOCUSATE SODIUM 100 MG CAPSULE (FP) PO SCH ×3 (05:50→21:47)
[2022-09-19] MEDS: ALBUTEROL SO4 2.5/IPRATROPIUM 0.5 INH SOL 3 ML VIAL.NEB. NEB SCH ×2 (07:14→21:00)
[2022-09-19] MEDS: POLYETHYLENE GLYCOL (HEALTHYLAX) 3350 17 GM PACKET PO SCH (10:41)
[2022-09-19] MEDS: HEPARIN NA (PORCINE) 5,000 UNITS/ML 1ML VIAL SQ SCH ×2 (10:41→21:46)
[2022-09-19] MEDS: MULTIVITAMINS (DAILY MVI) TABLET (FP) PO SCH (10:41)
[2022-09-19] MEDS: PANTOPRAZOLE 40 MG TABLET PO SCH (10:41)
[2022-09-19] MEDS: MONTELUKAST NA 10 MG TABLET PO SCH (21:47)
[2022-09-19 22:08] VITALS: RESP 20
[2022-09-19] MEDS ORDERED: methylPREDNISolone NA SUCC 40 MG/1 ML VIAL IM ONE (23:38)
[2022-09-20] MEDS: methylPREDNISolone NA SUCC 40 MG/1 ML VIAL IVPUSH SCH (02:02)
[2022-09-20] MEDS: ALBUTEROL SO4 2.5/IPRATROPIUM 0.5 INH SOL 3 ML VIAL.NEB. NEB SCH ×4 (04:00→12:56)
[2022-09-20] MEDS: DOCUSATE SODIUM 100 MG CAPSULE (FP) PO SCH ×2 (07:59→15:06)
[2022-09-20] MEDS: POLYETHYLENE GLYCOL (HEALTHYLAX) 3350 17 GM PACKET PO SCH (09:46)
[2022-09-20] MEDS: MULTIVITAMINS (DAILY MVI) TABLET (FP) PO SCH (09:46)
[2022-09-20] MEDS: PANTOPRAZOLE 40 MG TABLET PO SCH (09:46)
[2022-09-20] MEDS: HEPARIN NA (PORCINE) 5,000 UNITS/ML 1ML VIAL SQ SCH (09:46)
[2022-09-20 15:15] VITALS: BP 114/75; PULSE 90; TEMP 97.8
== END 2022-09-20 15:42 | disposition home or self-care (01) | DRG 141 ==
LOC: JER 21:37 → JERBED 23:09 → J8W 09-16 19:42
PROVIDERS: ADMIT Internal Medicine; ATTEND Family Medicine
DX: J45.31 Mild persistent asthma with (acute) exacerbation (principal); R00.0 Tachycardia, unspecified; E66.9 Obesity, unspecified; Z68.34 Body mass index [BMI] 34.0-34.9, adult
CPT/HCPCS: 0241U-QW; 36415; 71045-TC-FY; 80048; 80053; 85025; 85610; 85730; 93005; 93010; 94150; 94640; 99285-25; J1100; J1644

== ENCOUNTER 2023-07-07 11:58 | Emergency (ER) | payer OTHER ==
[2023-07-07 12:06] VITALS: BP 120/76; TEMP 99.4; BMI 36.0
[2023-07-07] MEDS ORDERED: SODIUM CHLORIDE 1,000 ML IV STA (13:23)
[2023-07-07] MEDS ORDERED: ACETAMINOPHEN 1000 MG/100 ML BAG IVPB ONE (13:23)
[2023-07-07] MEDS ORDERED: METOCLOPRAMIDE HCL INJECTION 10 MG/2 ML VIAL IVPUSH ONE (13:24)
[2023-07-07] MEDS ORDERED: ACETAMINOPHEN INJECTION 100 ML IVPB ONE (13:28)
[2023-07-07] MEDS ORDERED: METOCLOPRAMIDE HCL INJECTION 10 MG/2 ML VIAL ONE (13:28)
[2023-07-07 14:40] LABS: BASO % 0.9 % (0-2.0); EOS % 1.4 % (0-4.5); HEMATOCRIT 42.1 % (32.4-45.2); HEMOGLOBIN 13.5 GM/dL (10.7-15.3); MCH 26.2 pg (25.7-33.7); MEAN PLT VOLUME 6.8 fl (7.5-11.1); MONO % 8.9 % (3.8-10.2); NEUT % 69.8 % (42.8-82.8); PLATELET COUNT 423 10^3/uL (134-434); RBC 5.13 M/mm3 (3.60-5.2); RDW 16.3 % (11.6-15.6); WHITE BLOOD COUNT 8.6 K/mm3 (4.0-10.0)
[2023-07-07 14:42] LABS: EPI CELLS >36 /uL (0-25.1); HYALINE CASTS 1 /uL (0-3.1); URINE APPEARANCE CLEAR; URINE BACTERIA 329 /uL (0-1359); URINE BILIRUBIN NEGATIVE (NEGATIVE); URINE COLOR YELLOW; URINE GLUCOSE (UA) NEGATIVE (NEGATIVE); URINE KETONE TRACE (NEGATIVE); URINE LEUK ESTERASE NEGATIVE (NEGATIVE); URINE NITRITE NEGATIVE (NEGATIVE); URINE PROTEIN TRACE (NEGATIVE); URINE WBC 17 /uL (0-25.8)
[2023-07-07] MEDS ORDERED: KETOROLAC TROMETHAMINE 30 MG/1 ML VIAL IVPUSH ONE (14:43)
[2023-07-07 14:50] LABS: URINE RBC 70.1 /uL (0-23.9)
[2023-07-07 15:00] LABS: POTASSIUM 4.1 mmol/L (3.5-5.1)
[2023-07-07 15:02] LABS: BLOOD UREA NITROGEN 10.8 mg/dL (7-18)
[2023-07-07 15:05] LABS: CREATININE 0.8 mg/dL (0.55-1.3)
[2023-07-07] MEDS ORDERED: KETOROLAC TROMETHAMINE 30 MG/1 ML VIAL ONE (15:06)
[2023-07-07 15:07] LABS: BILIRUBIN,TOTAL 0.3 mg/dL (0.2-1); TOT PROT 7.7 g/dl (6.4-8.2)
[2023-07-07 16:03] VITALS: PULSE 81; RESP 16
== END 2023-07-07 16:03 | disposition home or self-care (01) ==
LOC: JER 11:58
PROC: 3E033NZ Introduction of Analgesics, Hypnotics, Sedatives into Peripheral Vein, Percutaneous Approach (ICD-10-PCS; principal; 2023-07-07)
PROC: 3E033GC Introduction of Other Therapeutic Substance into Peripheral Vein, Percutaneous Approach (ICD-10-PCS; 2023-07-07)
PROC: 3E033GC Introduction of Other Therapeutic Substance into Peripheral Vein, Percutaneous Approach (ICD-10-PCS; 2023-07-07)
PROC: 3E0337Z Introduction of Electrolytic and Water Balance Substance into Peripheral Vein, Percutaneous Approach (ICD-10-PCS; 2023-07-07)
DX: R51.9 Headache, unspecified (principal); Z20.822 Contact with and (suspected) exposure to COVID-19
CPT/HCPCS: 0241U-QW; 36415; 70450-TC; 80053; 81003; 84703; 85025; 87086; 96361; 96374; 96375; 99284-25

== ENCOUNTER 2023-08-16 19:20 | Emergency (ER) | payer OTHER ==
[2023-08-16 19:23] VITALS: RESP 22; TEMP 97.7; BMI 36.0
[2023-08-16] MEDS ORDERED: ALBUTEROL SO4 2.5/IPRATROPIUM 0.5 INH SOL 3 ML VIAL.NEB. NEB ONE ×2 (19:30→19:41)
[2023-08-16] MEDS ORDERED: predniSONE 20 MG TABLET (UD) PO ONE (19:37)
[2023-08-16] MEDS: ALBUTEROL SO4 2.5/IPRATROPIUM 0.5 INH SOL 3 ML VIAL.NEB. NEB SCH ×4 (19:42→20:20)
[2023-08-16] MEDS ORDERED: predniSONE 20 MG TABLET (UD) ONE (19:42)
[2023-08-16] MEDS ORDERED: MAGNESIUM SULF 50% (8.12 MEQ/2 ML-1 GM VIAL) IVPB ONE (20:56)
[2023-08-16] MEDS ORDERED: MAGNESIUM SULFATE IN WATER 2 GM/50 ML IVPB IVPB ONE (21:03)
[2023-08-16 22:31] VITALS: BP 113/73; PULSE 91
== END 2023-08-16 22:32 | disposition home or self-care (01) ==
LOC: JER 19:20
PROC: 3E033GC Introduction of Other Therapeutic Substance into Peripheral Vein, Percutaneous Approach (ICD-10-PCS; principal; 2023-08-16)
PROC: 3E0F7GC Introduction of Other Therapeutic Substance into Respiratory Tract, Via Natural or Artificial Opening (ICD-10-PCS; 2023-08-16)
DX: R06.02 Shortness of breath (principal); R05.9 Cough, unspecified; J45.909 Unspecified asthma, uncomplicated; Z20.822 Contact with and (suspected) exposure to COVID-19
CPT/HCPCS: 0241U-QW; 93005; 93010; 99284-25

== ENCOUNTER 2023-08-26 09:05 | Inpatient (IN) | payer OTHER ==
[2023-08-26] MEDS ORDERED: ALBUTEROL SO4 2.5/IPRATROPIUM 0.5 INH SOL 3 ML VIAL.NEB. NEB ONE ×4 (09:13→14:16)
[2023-08-26] MEDS ORDERED: MAGNESIUM SULFATE IN WATER 2 GM/50 ML IVPB IVPB ONE ×2 (09:13→09:55)
[2023-08-26] MEDS ORDERED: MAGNESIUM SULF 50% (8.12 MEQ/2 ML-1 GM VIAL) IVPB ONE (09:41)
[2023-08-26 09:51] VITALS: RESP 18
[2023-08-26 10:29] LABS: BASO % 0.3 % (0-2.0); EOS % 0.9 % (0-4.5); HEMATOCRIT 38.1 % (32.4-45.2); HEMOGLOBIN 12.3 GM/dL (10.7-15.3); LYMPH % 5.9 % (8-40); MCH 26.7 pg (25.7-33.7); MCHC 32.4 g/dl (32.0-36.0); MEAN CELL VOLUME 82.4 fl (80-96); MEAN PLT VOLUME 6.3 fl (7.5-11.1); MONO % 3.2 % (3.8-10.2); NEUT % 89.7 % (42.8-82.8); PLATELET COUNT 414 10^3/uL (134-434); RBC 4.62 M/mm3 (3.60-5.2); WHITE BLOOD COUNT 14.3 K/mm3 (4.0-10.0)
[2023-08-26 10:55] LABS: POTASSIUM 4.1 mmol/L (3.5-5.1)
[2023-08-26 10:57] LABS: CALCIUM 8.2 mg/dL (8.5-10.1)
[2023-08-26 10:58] LABS: ALBUMIN 3.4 g/dl (3.4-5.0); BLOOD UREA NITROGEN 11.8 mg/dL (7-18)
[2023-08-26 11:01] LABS: CREATININE 0.6 mg/dL (0.55-1.3)
[2023-08-26 11:02] LABS: BILIRUBIN,TOTAL 0.2 mg/dL (0.2-1); TOT PROT 6.9 g/dl (6.4-8.2)
[2023-08-26] MEDS ORDERED: ALBUTEROL SO4 0.083% IH SOL 2.5 MG/3 ML VIAL.NEB. NEB ONE ×2 (11:47→11:54)
[2023-08-26] MEDS ORDERED: methylPREDNISolone NA SUCC 40 MG/1 ML VIAL IVPUSH ONE (14:16)
[2023-08-26] MEDS ORDERED: methylPREDNISolone NA SUCC 40 MG/1 ML VIAL ONE (14:22)
[2023-08-26] MEDS ORDERED: ALBUTEROL SO4 0.083% IH SOL 2.5 MG/3 ML VIAL.NEB. NEB PRN (14:48)
[2023-08-26] MEDS ORDERED: methylPREDNISolone NA SUCC 40 MG/1 ML VIAL IVPUSH SCH (15:00)
[2023-08-26] MEDS: DEXTROSE 5%-0.45% SALINE 1,000 ML IV SCH (15:17)
[2023-08-26] MEDS: ALBUTEROL SO4 2.5/IPRATROPIUM 0.5 INH SOL 3 ML VIAL.NEB. NEB SCH ×2 (16:30→20:05)
[2023-08-26] MEDS ORDERED: ONDANSETRON 4 MG/2 ML VIAL IVPUSH ONE (17:43)
[2023-08-26] MEDS: methylPREDNISolone NA SUCC 40 MG/1 ML VIAL IVPUSH SCH (20:47)
[2023-08-27] MEDS: DEXTROSE 5%-0.45% SALINE 1,000 ML IV SCH ×2 (04:00→14:10)
[2023-08-27] MEDS: methylPREDNISolone NA SUCC 40 MG/1 ML VIAL IVPUSH SCH ×3 (04:23→21:23)
[2023-08-27] MEDS: ALBUTEROL SO4 2.5/IPRATROPIUM 0.5 INH SOL 3 ML VIAL.NEB. NEB SCH ×4 (07:30→20:13)
[2023-08-27 08:19] LABS: HEMATOCRIT 35.6 % (32.4-45.2); HEMOGLOBIN 11.6 GM/dL (10.7-15.3); MCH 26.8 pg (25.7-33.7); MCHC 32.7 g/dl (32.0-36.0); MEAN CELL VOLUME 81.9 fl (80-96); MEAN PLT VOLUME 6.6 fl (7.5-11.1); PLATELET COUNT 391 10^3/uL (134-434); RBC 4.35 M/mm3 (3.60-5.2); RDW 15.3 % (11.6-15.6); WHITE BLOOD COUNT 15.6 K/mm3 (4.0-10.0)
[2023-08-27 09:05] LABS: ANISOCYTOSIS 0; MACROCYTOSIS 0
[2023-08-27 09:20] LABS: POTASSIUM 4.2 mmol/L (3.5-5.1)
[2023-08-27 09:26] LABS: BLOOD UREA NITROGEN 13.5 mg/dL (7-18); CALCIUM 8.6 mg/dL (8.5-10.1); MAGNESIUM 2.5 mg/dL (1.8-2.4)
[2023-08-27 09:27] LABS: ALBUMIN 3.3 g/dl (3.4-5.0)
[2023-08-27 09:30] LABS: CREATININE 0.7 mg/dL (0.55-1.3)
[2023-08-27 09:31] LABS: BILIRUBIN,TOTAL 0.3 mg/dL (0.2-1); TOT PROT 6.9 g/dl (6.4-8.2)
[2023-08-27] MEDS ORDERED: BUDESONIDE/FORMETEROL FUMARATE 160/4.5 mcg INHALER IH SCH (12:15)
[2023-08-27] MEDS ORDERED: MECLIZINE HCL 25 MG TABLET (FP) PO PRN (14:24)
[2023-08-27] MEDS ORDERED: ONDANSETRON 4 MG/2 ML VIAL IVPUSH PRN (14:24)
[2023-08-27] MEDS: PANTOPRAZOLE 40 MG TABLET PO SCH (14:40)
[2023-08-27] MEDS: POLYETHYLENE GLYCOL (HEALTHYLAX) 3350 17 GM PACKET PO SCH (14:40)
[2023-08-27] MEDS: DOCUSATE SODIUM 100 MG CAPSULE (FP) PO SCH (21:22)
[2023-08-27] MEDS: FLUTICASONE/SALMETEROL (WIXELA) 100 MCG/50 MCG DISKUS IH SCH (21:23)
[2023-08-27] MEDS ORDERED: MONTELUKAST NA 10 MG TABLET PO SCH ×2 (22:00)
[2023-08-27] MEDS: ALBUTEROL SO4 0.083% IH SOL 2.5 MG/3 ML VIAL.NEB. NEB PRN (23:43)
[2023-08-28] MEDS: methylPREDNISolone NA SUCC 40 MG/1 ML VIAL IVPUSH SCH ×2 (04:00→12:06)
[2023-08-28] MEDS: DOCUSATE SODIUM 100 MG CAPSULE (FP) PO SCH ×2 (05:42→14:29)
[2023-08-28] MEDS: ALBUTEROL SO4 0.083% IH SOL 2.5 MG/3 ML VIAL.NEB. NEB PRN (06:08)
[2023-08-28] MEDS: ALBUTEROL SO4 2.5/IPRATROPIUM 0.5 INH SOL 3 ML VIAL.NEB. NEB SCH ×3 (07:42→15:22)
[2023-08-28] MEDS: PANTOPRAZOLE 40 MG TABLET PO SCH (09:40)
[2023-08-28] MEDS: POLYETHYLENE GLYCOL (HEALTHYLAX) 3350 17 GM PACKET PO SCH (09:40)
[2023-08-28] MEDS: FLUTICASONE/SALMETEROL (WIXELA) 100 MCG/50 MCG DISKUS IH SCH (09:40)
[2023-08-28 17:12] VITALS: BP 108/60; PULSE 77; TEMP 98
[2023-08-28 21:01] VITALS: BMI 32.5
== END 2023-08-28 18:36 | disposition home or self-care (01) | DRG 141 ==
LOC: JER 09:05 → JERBED 14:39 → J6S 15:51
PROVIDERS: ADMIT Internal Medicine; ATTEND Internal Medicine
DX: J45.901 Unspecified asthma with (acute) exacerbation (principal); K59.00 Constipation, unspecified; R00.0 Tachycardia, unspecified; R09.02 Hypoxemia; R42 Dizziness and giddiness
CPT/HCPCS: 0241U-QW; 36415; 71045-TC-FY; 80053; 82962; 83036; 83735; 84443; 84703; 85025; 93005; 93010; 94640; 99291

== ENCOUNTER 2023-10-14 20:50 | Observation (INO) | payer OTHER ==
[2023-10-14 21:01] VITALS: BMI 35.9
[2023-10-14] MEDS: ALBUTEROL SO4 2.5/IPRATROPIUM 0.5 INH SOL 3 ML VIAL.NEB. NEB SCH ×3 (21:25→22:31)
[2023-10-14 21:54] LABS: BASO % 0.9 % (0-2.0); EOS % 0.8 % (0-4.5); HEMATOCRIT 39.1 % (32.4-45.2); HEMOGLOBIN 12.2 GM/dL (10.7-15.3); LYMPH % 9.9 % (8-40); MCH 25.7 pg (25.7-33.7); MCHC 31.1 g/dl (32.0-36.0); MEAN CELL VOLUME 82.6 fl (80-96); MEAN PLT VOLUME 6.6 fl (7.5-11.1); MONO % 6.3 % (3.8-10.2); NEUT % 82.1 % (42.8-82.8); PLATELET COUNT 388 10^3/uL (134-434); RBC 4.73 M/mm3 (3.60-5.2); RDW 14.8 % (11.6-15.6); WHITE BLOOD COUNT 12.2 K/mm3 (4.0-10.0)
[2023-10-14 22:23] LABS: POTASSIUM 3.4 mmol/L (3.5-5.1)
[2023-10-14] MEDS ORDERED: ALBUTEROL SO4 2.5/IPRATROPIUM 0.5 INH SOL 3 ML VIAL.NEB. NEB ONE (22:24)
[2023-10-14 22:25] LABS: CALCIUM 8.9 mg/dL (8.5-10.1)
[2023-10-14 22:26] LABS: ALBUMIN 3.6 g/dl (3.4-5.0); BLOOD UREA NITROGEN 9.3 mg/dL (7-18); MAGNESIUM 2.9 mg/dL (1.8-2.4)
[2023-10-14 22:29] LABS: CREATININE 0.7 mg/dL (0.55-1.3)
[2023-10-14 22:31] LABS: BILIRUBIN,TOTAL 0.2 mg/dL (0.2-1); TOT PROT 7.2 g/dl (6.4-8.2)
[2023-10-14] MEDS ORDERED: POTASSIUM CHLORIDE TABS 20 MEQ TABLET.ER (FP) PO ONE ×2 (22:49→23:01)
[2023-10-14] MEDS ORDERED: ALBUTEROL SO4 2.5/IPRATROPIUM 0.5 INH SOL 3 ML VIAL.NEB. NEB PRN (23:31)
[2023-10-15] MEDS ORDERED: methylPREDNISolone NA SUCC 40 MG/1 ML VIAL ONE ×4 (02:06→21:02)
[2023-10-15] MEDS: methylPREDNISolone NA SUCC 40 MG/1 ML VIAL IVPUSH SCH ×4 (02:09→21:10)
[2023-10-15] MEDS ORDERED: ALBUTEROL SO4 2.5/IPRATROPIUM 0.5 INH SOL 3 ML VIAL.NEB. NEB ONE ×4 (04:21→15:58)
[2023-10-15] MEDS ORDERED: PANTOPRAZOLE 40 MG TABLET PO SCH (07:00)
[2023-10-15] MEDS ORDERED: PANTOPRAZOLE 40 MG TABLET PO ONE (08:22)
[2023-10-15] MEDS: ALBUTEROL SO4 2.5/IPRATROPIUM 0.5 INH SOL 3 ML VIAL.NEB. NEB PRN ×3 (08:27→16:02)
[2023-10-15] MEDS: BUDESONIDE/FORMETEROL FUMARATE 160/4.5 mcg INHALER IH SCH ×2 (12:12→21:10)
[2023-10-15 12:37] LABS: BASO % 0.1 % (0-2.0); HEMATOCRIT 36.5 % (32.4-45.2); HEMOGLOBIN 11.9 GM/dL (10.7-15.3); MCH 26.4 pg (25.7-33.7); MCHC 32.5 g/dl (32.0-36.0); MEAN CELL VOLUME 81.2 fl (80-96); MEAN PLT VOLUME 6.9 fl (7.5-11.1); MONO % 4.7 % (3.8-10.2); NEUT % 89.2 % (42.8-82.8); PLATELET COUNT 399 10^3/uL (134-434); RDW 15.1 % (11.6-15.6); WHITE BLOOD COUNT 10.2 K/mm3 (4.0-10.0)
[2023-10-15] MEDS ORDERED: ALBUTEROL SO4 0.083% IH SOL 2.5 MG/3 ML VIAL.NEB. NEB PRN (12:52)
[2023-10-15 13:47] LABS: POTASSIUM 4.6 mmol/L (3.5-5.1)
[2023-10-15 13:53] LABS: BLOOD UREA NITROGEN 8.8 mg/dL (7-18); CALCIUM 9.1 mg/dL (8.5-10.1)
[2023-10-15 13:56] LABS: CREATININE 0.7 mg/dL (0.55-1.3)
[2023-10-15 17:58] VITALS: BP 131/82; PULSE 102; RESP 20; TEMP 98.9
[2023-10-15] MEDS ORDERED: ALBUTEROL SO4 0.083% IH SOL 2.5 MG/3 ML VIAL.NEB. NEB ONE (18:06)
[2023-10-15] MEDS ORDERED: MONTELUKAST NA 10 MG TABLET ONE (21:02)
[2023-10-15] MEDS ORDERED: MONTELUKAST NA 10 MG TABLET PO SCH (22:00)
== END 2023-10-15 21:45 | disposition left against medical advice (07) ==
LOC: JER 20:50 → JERBED 22:56
PROVIDERS: ADMIT Internal Medicine; ATTEND Family Medicine
PROC: 3E0F7GC Introduction of Other Therapeutic Substance into Respiratory Tract, Via Natural or Artificial Opening (ICD-10-PCS; principal; 2023-10-14)
PROC: 3E033GC Introduction of Other Therapeutic Substance into Peripheral Vein, Percutaneous Approach (ICD-10-PCS; 2023-10-14)
DX: J45.901 Unspecified asthma with (acute) exacerbation (principal); Z91.013 Allergy to seafood; Z88.0 Allergy status to penicillin; Z88.8 Allergy status to other drugs, medicaments and biological substances; R42 Dizziness and giddiness
CPT/HCPCS: 0241U-QW; 36415; 71045-TC-FY; 80048; 80053; 83735; 84484; 84703; 85025; 93005; 93010; 94640; 96374; 96376; 99285-25; G0378

== ENCOUNTER 2023-11-21 08:34 | Inpatient (IN) | payer OTHER ==
[2023-11-21 09:00] VITALS: BMI 34.3
[2023-11-21] MEDS ORDERED: ALBUTEROL SO4 2.5/IPRATROPIUM 0.5 INH SOL 3 ML VIAL.NEB. NEB ONE ×3 (09:34→19:57)
[2023-11-21 10:04] LABS: BASO % 0.3 % (0-2.0); EOS % 0.7 % (0-4.5); HEMATOCRIT 37.3 % (32.4-45.2); LYMPH % 8.5 % (8-40); MCH 26.2 pg (25.7-33.7); MCHC 32.2 g/dl (32.0-36.0); MEAN CELL VOLUME 81.6 fl (80-96); MEAN PLT VOLUME 6.6 fl (7.5-11.1); MONO % 4.1 % (3.8-10.2); NEUT % 86.4 % (42.8-82.8); PLATELET COUNT 313 10^3/uL (134-434); RBC 4.58 M/mm3 (3.60-5.2); RDW 15.8 % (11.6-15.6); WHITE BLOOD COUNT 11.2 K/mm3 (4.0-10.0)
[2023-11-21 10:18] LABS: VENOUS BASE EXCESS -1.9 mmol/L (-2-2); VENOUS O2 SATURATION 86.7 % (70-80); VENOUS PCO2 37.8 mmHg (38-52); VENOUS PH 7.394 (7.310-7.410)
[2023-11-21] MEDS: ALBUTEROL SO4 2.5/IPRATROPIUM 0.5 INH SOL 3 ML VIAL.NEB. NEB ONE (10:31)
[2023-11-21] MEDS ORDERED: ALBUTEROL SO4 0.083% IH SOL 2.5 MG/3 ML VIAL.NEB. NEB ONE ×3 (10:35→17:50)
[2023-11-21] MEDS ORDERED: MAGNESIUM SULFATE IN WATER 2 GM/50 ML IVPB IVPB ONE (10:36)
[2023-11-21 10:37] LABS: CALCIUM 8.3 mg/dL (8.5-10.1)
[2023-11-21 10:38] LABS: ALBUMIN 3.3 g/dl (3.4-5.0); MAGNESIUM 2.1 mg/dL (1.8-2.4)
[2023-11-21 10:42] LABS: BILIRUBIN,TOTAL 0.4 mg/dL (0.2-1); TOT PROT 6.7 g/dl (6.4-8.2)
[2023-11-21 10:45] LABS: BLOOD UREA NITROGEN 9.6 mg/dL (7-18); CREATININE 0.6 mg/dL (0.55-1.3)
[2023-11-21] MEDS: ALBUTEROL SO4 0.083% IH SOL 2.5 MG/3 ML VIAL.NEB. NEB ONE (10:58)
[2023-11-21] MEDS: MAGNESIUM SULFATE IN WATER 2 GM/50 ML IVPB IVPB ONE (10:58)
[2023-11-21] MEDS ORDERED: DEXAMETHASONE SOD PHOSPHATE 4 MG/1 ML VIAL ONE (13:05)
[2023-11-21] MEDS: DEXAMETHASONE SOD PHOSPHATE 4 MG/1 ML VIAL IVPUSH ONE (13:16)
[2023-11-21] MEDS: ALBUTEROL SO4 0.083% IH SOL 2.5 MG/3 ML VIAL.NEB. NEB PRN ×2 (14:27→17:53)
[2023-11-21] MEDS ORDERED: ACETAMINOPHEN 325 MG TABLET (FP) PO PRN (14:55)
[2023-11-21] MEDS: ALBUTEROL SO4 2.5/IPRATROPIUM 0.5 INH SOL 3 ML VIAL.NEB. NEB SCH (16:13)
[2023-11-21] MEDS ORDERED: methylPREDNISolone NA SUCC 40 MG/1 ML VIAL ONE ×2 (18:50→22:08)
[2023-11-21] MEDS: methylPREDNISolone NA SUCC 40 MG/1 ML VIAL IVPUSH SCH (18:55)
[2023-11-21] MEDS: BUDESONIDE/FORMETEROL FUMARATE 160/4.5 mcg INHALER IH ONE (19:57)
[2023-11-21] MEDS: BUDESONIDE/FORMETEROL FUMARATE 160/4.5 mcg INHALER IH SCH (21:59)
[2023-11-21] MEDS ORDERED: MONTELUKAST NA 10 MG TABLET ONE (22:08)
[2023-11-21] MEDS: MONTELUKAST NA 10 MG TABLET PO SCH (22:14)
[2023-11-22 00:06] VITALS: RESP 18
[2023-11-22 09:00] LABS: HEMATOCRIT 36.7 % (32.4-45.2); HEMOGLOBIN 11.4 GM/dL (10.7-15.3); MCH 25.4 pg (25.7-33.7); MEAN CELL VOLUME 82.1 fl (80-96); MEAN PLT VOLUME 6.9 fl (7.5-11.1); PLATELET COUNT 312 10^3/uL (134-434); RBC 4.47 M/mm3 (3.60-5.2); RDW 15.3 % (11.6-15.6); WHITE BLOOD COUNT 14.7 K/mm3 (4.0-10.0)
[2023-11-22 09:22] LABS: POTASSIUM 4.2 mmol/L (3.5-5.1)
[2023-11-22] MEDS: PANTOPRAZOLE 40 MG TABLET PO SCH (09:22)
[2023-11-22] MEDS: ENOXAPARIN NA (PORCINE) 40 MG/0.4 ML DISP.SYRIN SQ SCH (09:23)
[2023-11-22 09:24] LABS: CALCIUM 8.8 mg/dL (8.5-10.1)
[2023-11-22 09:25] LABS: ALBUMIN 3.4 g/dl (3.4-5.0); BLOOD UREA NITROGEN 9.5 mg/dL (7-18); MAGNESIUM 2.2 mg/dL (1.8-2.4)
[2023-11-22 09:28] LABS: CREATININE 0.7 mg/dL (0.55-1.3); PHOSPHOROUS 4.1 mg/dL (2.5-4.9)
[2023-11-22 09:29] LABS: BILIRUBIN,TOTAL 0.3 mg/dL (0.2-1); TOT PROT 6.9 g/dl (6.4-8.2)
[2023-11-22] MEDS: SENNOSIDES 8.6MG TABLET (FP) PO SCH (10:20)
[2023-11-22 11:03] LABS: ANISOCYTOSIS 0; HELMET CELLS 0; HOWELL-JOLLY BODIES 0; MACROCYTOSIS 0; OVALOCYTE 0; ROULEAU 0; SICKELED CELLS 0; TARGET CELLS 0; TEAR DROP CELLS 0; TOXIC GRANULATION 0
[2023-11-22] MEDS: MECLIZINE HCL 25 MG TABLET (FP) PO PRN (13:02)
[2023-11-22] MEDS ORDERED: methylPREDNISolone NA SUCC 125 MG/2 ML VIAL IVPUSH SCH (15:00)
[2023-11-22] MEDS: ALBUTEROL SO4 2.5/IPRATROPIUM 0.5 INH SOL 3 ML VIAL.NEB. NEB SCH (15:41)
[2023-11-22] MEDS: methylPREDNISolone NA SUCC 40 MG/1 ML VIAL IVPUSH SCH (17:38)
[2023-11-23 09:23] LABS: BASO % 0.1 % (0-2.0); HEMATOCRIT 36.1 % (32.4-45.2); HEMOGLOBIN 11.7 GM/dL (10.7-15.3); LYMPH % 5.6 % (8-40); MCH 26.2 pg (25.7-33.7); MCHC 32.4 g/dl (32.0-36.0); MEAN CELL VOLUME 80.8 fl (80-96); MEAN PLT VOLUME 7.2 fl (7.5-11.1); MONO % 4.4 % (3.8-10.2); NEUT % 89.9 % (42.8-82.8); PLATELET COUNT 323 10^3/uL (134-434); RBC 4.47 M/mm3 (3.60-5.2); RDW 15.5 % (11.6-15.6); WHITE BLOOD COUNT 19.5 K/mm3 (4.0-10.0)
[2023-11-23 09:53] LABS: POTASSIUM 4.3 mmol/L (3.5-5.1)
[2023-11-23 10:04] LABS: ALBUMIN 3.5 g/dl (3.4-5.0); BILIRUBIN,TOTAL 0.3 mg/dL (0.2-1); BLOOD UREA NITROGEN 13.1 mg/dL (7-18); CALCIUM 9.5 mg/dL (8.5-10.1); TOT PROT 7.1 g/dl (6.4-8.2)
[2023-11-23 10:06] LABS: CREATININE 0.8 mg/dL (0.55-1.3)
[2023-11-24 06:32] VITALS: PULSE 84
[2023-11-24 09:18] VITALS: BP 116/75; TEMP 98.9
== END 2023-11-24 13:25 | disposition home or self-care (01) | DRG 141 ==
LOC: JER 08:34 → JERBED 14:14 → J5S 23:29
PROVIDERS: ADMIT Internal Medicine; ATTEND Internal Medicine
DX: J45.901 Unspecified asthma with (acute) exacerbation (principal); E66.9 Obesity, unspecified; Z68.34 Body mass index [BMI] 34.0-34.9, adult; R42 Dizziness and giddiness; K59.00 Constipation, unspecified
CPT/HCPCS: 0241U-QW; 36415; 71045-TC-FY; 80053; 82803; 83735; 84100; 84439; 84443; 84703; 85025; 93005; 93010; 94640; 99291